=== PATIENT | female | born 1990 | race Caucasian/White ===

== ENCOUNTER 2018-10-21 05:38 | Emergency (ER) | payer MEDICAID, OTHER | END 2018-10-21 07:35 | disposition home or self-care (01) | LOC: ER 05:38 ==

== ENCOUNTER 2018-11-08 07:45 | Emergency (ER) | payer MEDICAID ==
[~2018-11-08] VITALS: Ht 165.1 cm; Wt 49.0 kg
[2018-11-08 08:40] LABS: BILIRUBIN,URINE NEGATIVE (NEGATIVE); CLARITY,URINE SLIGHTLY CLOUDY; COLOR,URINE YELLOW; GLUCOSE, URINE (UA) NEGATIVE (NEGATIVE); KETONES,URINE NEGATIVE (NEGATIVE); LEUKOCYTE ESTERASE ,URINE 3+ (NEGATIVE); NITRITE,URINE NEGATIVE (NEGATIVE); PH,URINE 6.5 (5-9); PROTEIN,URINE NEGATIVE (NEGATIVE); UROBILINOGEN,URINE NORMAL (NORMAL)
[2018-11-08 08:42] LABS: BASOPHILS % (AUTO) 0 % (0-10); EOSINOPHILS # (AUTO) 0.4 10^3/uL (0.0-0.3); EOSINOPHILS % (AUTO) 2 % (0-10); HEMATOCRIT 42 % (35-52); HEMOGLOBIN 14.4 G/DL (11.5-16.0); LYMPHOCYTES # (AUTO) 1.3 X 10^3 (1.0-4.0); LYMPHOCYTES % (AUTO) 8 % (12-44); MEAN CORPUSCULAR HEMOGLOBIN 33 PG (25-34); MEAN CORPUSCULAR HGB CONC 35 G/DL (32-36); MEAN CORPUSCULAR VOLUME 95 FL (80-99); MONOCYTES # (AUTO) 0.9 X 10^3 (0.0-1.0); MONOCYTES % (AUTO) 6 % (0-12); NEUTROPHILS # (AUTO) 13.2 X 10^3 (1.8-7.8); NEUTROPHILS % (AUTO) 83 % (42-75); PLATELET COUNT 181 10^3/uL (130-400); WHITE BLOOD COUNT 15.8 10^3/uL (4.3-11.0)
[2018-11-08 08:51] LABS: BACTERIA,URINE MODERATE /HPF; SQUAMOUS EPITHELIAL CELL,UR 25-50 /HPF; WBC,URINE 25-50 /HPF
[2018-11-08 08:57] LABS: ALANINE AMINOTRANSFERASE 15 U/L (0-55); ALKALINE PHOSPHATASE 52 U/L (40-136); BILIRUBIN,TOTAL 0.6 MG/DL (0.1-1.0); BUN/CREATININE RATIO 9; CALCIUM 9.4 MG/DL (8.5-10.1); CARBON DIOXIDE 20 MMOL/L (21-32); CHLORIDE 106 MMOL/L (98-107); CREATININE SERUM 0.64 MG/DL (0.60-1.30); GFR ESTIMATED > 60; GLUCOSE 82 MG/DL (70-105); POTASSIUM 4.1 MMOL/L (3.6-5.0); SODIUM 138 MMOL/L (135-145); TOTAL PROTEIN 7.2 GM/DL (6.4-8.2)
[2018-11-08 09:02] LABS: BAND NEUTROPHILS 2 %; NEUTROPHILS % (MANUAL) 85 %
[2018-11-08 09:03] LABS: BASOPHILS % (MANUAL) 0 %; EOSINOPHILS % (MANUAL) 1 %; LYMPHOCYTES % (MANUAL) 8 %; MONOCYTES % (MANUAL) 4 %; RBC MORPH NORMAL
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
[2018-11-08] MEDS ORDERED: NS IV 1000 ML 1,000 ML IV SCH (10:30)
[2018-11-08] MEDS ORDERED: ONDANSETRON 4 MG/2 ML (SDV) Z0FRAN IVP ONE (10:30)
[2018-11-08] MEDS ORDERED: cefTRIAXone FOR IV USE 1,000 MG in WATER (STERILE) FOR INJECTION 10 ML IV ONE (12:00)
[2018-11-08] MEDS ORDERED: CEFD300C3 PO (12:08)
[2018-11-08] MEDS ORDERED: ONDA8TAB13 PO (12:08)
[2018-11-08 12:32] VITALS: BP 105/65
== END 2018-11-08 12:32 | disposition home or self-care (01) ==
LOC: EDUNIT# 07:45 → ER 07:46
DX: O23.42 Unspecified infection of urinary tract in pregnancy, second trimester (principal); O99.342 Other mental disorders complicating pregnancy, second trimester; F41.9 Anxiety disorder, unspecified; F32.9 Major depressive disorder, single episode, unspecified; O99.612 Diseases of the digestive system complicating pregnancy, second trimester; K21.9 Gastro-esophageal reflux disease without esophagitis; Z3A.14 14 weeks gestation of pregnancy
CPT/HCPCS: 36415; 80053; 81000; 85007; 85027; 87088

== ENCOUNTER 2019-01-12 12:32 | Outpatient (CLI) | payer MEDICAID ==
[~2019-01-12] VITALS: Ht 157.5 cm; Wt 55.3 kg
[~2019-01-12 12:32] MED LIST: CEFD300C3 PO; ONDA8TAB13 PO
--- NOTE | 2019-01-12 12:39 | NUR ---
HERNAN GALLEGO presented to unit via AMB from ED, with c/o FREQUENT URINATION,PELVIC PRESSURE. HERNAN GALLEGO weighed, gowned, voided, and to bed. EFHM and TOCO applied, VS taken. HERNAN GALLEGO oriented to bed controls, call light, TV, heat, and A/C controls.
[2019-01-12 12:50] VITALS: BP 97/63
[2019-01-12 13:08] LABS: BILIRUBIN,URINE NEGATIVE (NEGATIVE); CLARITY,URINE VERY CLOUDY; COLOR,URINE YELLOW; GLUCOSE, URINE (UA) NEGATIVE (NEGATIVE); KETONES,URINE NEGATIVE (NEGATIVE); LEUKOCYTE ESTERASE ,URINE 3+ (NEGATIVE); NITRITE,URINE NEGATIVE (NEGATIVE); PH,URINE 8 (5-9); PROTEIN,URINE 1+ (NEGATIVE); UROBILINOGEN,URINE NORMAL (NORMAL)
[2019-01-12 13:23] LABS: AMORPHOUS SEDIMENT,UR LARGE AMOR URATES /LPF; BACTERIA,URINE TRACE /HPF; SQUAMOUS EPITHELIAL CELL,UR 25-50 /HPF
--- NOTE | 2019-01-12 13:35 | NUR ---
ACTIVE FETUS. NO CTXS. OCC MILD VARIABLE NOTED. FHR 135. VARIABILITY APPROPRIATE FOR GESTATIONAL AGE OF 23 WKS 3 DAYS.
--- NOTE | 2019-01-12 13:40 | NUR ---
DR. REYES NOTIFIED OF PT'S ARRIVAL , COMPLAINT, VS, MONITOR STRIP AND UA RESULTS. ORDERS RECEIVED. PLAN OF CARE REVIEWED WITH PT WITH STATED UNDERSTANDING.
--- NOTE | 2019-01-12 13:44 | NUR ---
EFM OFF PER DR. ERIC DURAND.
[2019-01-12] MEDS ORDERED: LACTATED RINGERS 1,000 ML IV SCH (13:45)
--- NOTE | 2019-01-12 14:05 | NUR ---
IV STARTED. SEE INTERVENTION.
--- NOTE | 2019-01-12 14:20 | NUR ---
EATING CRACKERS. OFFERS NO COMPLAINTS AT THIS TIME. STATES IS FEELING BETTER.
[2019-01-12] MEDS ORDERED: PEDI18TA2 PO ×2 (14:25→15:03)
[2019-01-12] MEDS ORDERED: BUSP15TA60 PO (14:29)
[2019-01-12] MEDS ORDERED: RANI150T46 PO (14:29)
[2019-01-12] MEDS ORDERED: HYDR-3584 PO (14:29)
--- NOTE | 2019-01-12 14:55 | NUR ---
CALLED DR. REYES WITH UPDATE ON PT. ORDER TO DISMISS WITH PRECAUTIONS AND TO F/U SCHEDULED AND NEEDED.
--- NOTE | 2019-01-12 14:58 | NUR ---
IV COMPLETED. IV D/C'ED WITH CATHETER TIP INTACT. SITE CLEAR. UP TO GET DRESSED.
[2019-01-12 15:15] VITALS: BP 97/63
--- NOTE | 2019-01-12 15:15 | NUR ---
DISCHARGE INSTRUCTIONS REVIEWED WITH COPY TO PT. STATES UNDERSTANDING OF ALL INSTRUCTIONS AND NEED TO F/U SCHEDULED AND NEEDED. DISMISSED AMB FROM WS IN STABLE CONDITION TO AWAITING CAR.
== END 2019-01-12 15:15 | disposition home or self-care (01) ==
LOC: LDRP 12:32 → WSo 12:32
PROVIDERS: ATTEND Family Medicine
DX: O99.89 Other specified diseases and conditions complicating pregnancy, childbirth and the puerperium (principal); R35.0 Frequency of micturition; Z3A.23 23 weeks gestation of pregnancy
CPT/HCPCS: 81000; 87088; 96360; 99213

== ENCOUNTER 2019-02-08 22:56 | Outpatient (CLI) | payer MEDICAID ==
[~2019-02-08] VITALS: Ht 157.5 cm; Wt 58.1 kg
[~2019-02-08 22:56] MED LIST changes: +BUSP15TA60 PO; +HYDR-3584 PO; +PEDI18TA2 PO; +RANI150T46 PO
--- NOTE | 2019-02-08 23:00 | NUR ---
HERNAN GALLEGO presented to unit via ambulatory from ED, accompanied by s.o, with c/o VAG LEAKAGE. HERNAN GALLEGO weighed, gowned, voided, and to bed. EFHM and TOCO applied, VS taken. HERNAN GALLEGO oriented to bed controls, call light, TV, heat, and A/C controls. pt up changing and supplying u.a, assessments to follow.
[2019-02-08 23:13] VITALS: BP 103/63
[2019-02-08 23:14] LABS: BILIRUBIN,URINE NEGATIVE (NEGATIVE); CLARITY,URINE CLEAR; COLOR,URINE YELLOW; GLUCOSE, URINE (UA) NEGATIVE (NEGATIVE); KETONES,URINE NEGATIVE (NEGATIVE); LEUKOCYTE ESTERASE ,URINE 1+ (NEGATIVE); NITRITE,URINE NEGATIVE (NEGATIVE); PH,URINE 7 (5-9); PROTEIN,URINE NEGATIVE (NEGATIVE); UROBILINOGEN,URINE NORMAL (NORMAL)
[2019-02-08 23:22] LABS: BACTERIA,URINE FEW /HPF
--- NOTE | 2019-02-08 23:41 | NUR ---
This RN called Dr Slaughter to notify of patient arrival and complaints of possible leaking of fluid, notified Dr of nitrazine test with negative result, absent contraction pattern, FHR variability, and UA results. New order received at this time for call in prescription of Macrobid 100mg BID x7 days and discharge home.
--- NOTE | 2019-02-08 23:45 | NUR ---
FHR baseline of 130, moderate variability, accelerations present, no decelerations, absent contraction pattern, abd non tender, + FM, membranes intact with no vaginal bleeding.
--- NOTE | 2019-02-08 23:53 | NUR ---
Discharge instructions reviewed and handouts given to patient. Patient verbalize understanding. Patient and s/o ambulating off of unit to private vehicle.
--- NOTE | 2019-02-12 19:17 | Physician Query-Final Dx ---
MIKKI TOUSSAINT 02/12/19 1917: Final Diagnosis Give Final Diagnosis Please give Final Diagnosis Please give diagnosis and weeks of gestation MICAH RIOJAS MD 02/12/192149: Final Diagnosis Give Final Diagnosis Second Trimester 27 weeks gestation UTI MIKKI TOUSSAINT February 12, 2019 19:17 MICAH RIOJAS MD February 12, 2019 21:50
== END 2019-02-08 23:53 ==
LOC: WSo 22:56 → LDRP 22:57 → WSo 23:53
PROVIDERS: ATTEND Family Medicine
DX: O23.42 Unspecified infection of urinary tract in pregnancy, second trimester (principal); Z3A.27 27 weeks gestation of pregnancy
CPT/HCPCS: 81000; 99213

== ENCOUNTER 2019-03-21 19:28 | Observation (INO) | payer MEDICAID ==
[~2019-03-21] VITALS: Ht 157.5 cm; Wt 58.7 kg
--- NOTE | 2019-03-21 19:40 | NUR ---
EHRNAN GALLEGO presented to unit via ambulation from ED, accompanied by SO, with c/o BLEEDING. HERNAN GALLEGO weighed, gowned, voided, and to bed. EFHM and TOCO applied, VS taken. HERNAN GALLEGO oriented to bed controls, call light, TV, heat, and A/C controls.
[2019-03-21 19:50] VITALS: BP 101/61
--- NOTE | 2019-03-21 20:04 | NUR ---
SVE by Donovan Navarrete RN, 1.5 cm 50% soft and no bleeding noted. pt denies cramping or UC at this time.
[2019-03-21 20:15] LABS: BILIRUBIN,URINE NEGATIVE (NEGATIVE); CLARITY,URINE CLEAR; COLOR,URINE YELLOW; GLUCOSE, URINE (UA) NEGATIVE (NEGATIVE); KETONES,URINE NEGATIVE (NEGATIVE); LEUKOCYTE ESTERASE ,URINE 2+ (NEGATIVE); NITRITE,URINE NEGATIVE (NEGATIVE); PH,URINE 7 (5-9); PROTEIN,URINE NEGATIVE (NEGATIVE); UROBILINOGEN,URINE NORMAL (NORMAL)
[2019-03-21 20:21] LABS: BACTERIA,URINE FEW /HPF; RBC,URINE RARE /HPF
--- NOTE | 2019-03-21 21:13 | NUR ---
SVE by this RN 1.5 cm 50% no change from previous check. Pt continues to deny pain at this time. Pt states she only has hemorrhoid pain. Pt drank to large glasses of H2O and has voided.
[2019-03-21] MEDS ORDERED: LACTATED RINGERS 1,000 ML IV ONE (21:24)
[2019-03-21] MEDS ORDERED: BETAMETHASONE ACE/NA PHOS 6 MG/ML (CELESTONE SOLUSPAN) ONE (21:24)
[2019-03-21] MEDS: BETAMETHASONE ACE/NA PHOS 6 MG/ML (CELESTONE SOLUSPAN) IM SCH (21:43)
[2019-03-21] MEDS: LACTATED RINGERS 1,000 ML IV SCH (21:48)
[2019-03-21 22:30] VITALS: BP 99/63
[2019-03-21] MEDS ORDERED: D5 LR IV SOLUTION 1,000 ML IV ONE (22:56)
[2019-03-21] MEDS ORDERED: NIFEdipine 10 MG CAPS (WOMEN'S SERVICES ONLY!!!) PO ONE ×2 (22:56→23:00)
[2019-03-21] MEDS: D5 LR IV SOLUTION 1,000 ML IV SCH (23:04)
[2019-03-21 23:08] VITALS: BP 106/67
[2019-03-22] VITALS (25 sets, daily range): BP systolic 90–114; BP diastolic 51–72
[2019-03-22] MEDS: LACTATED RINGERS 1,000 ML IV SCH (00:10)
[2019-03-22] MEDS: NIFEdipine 10 MG CAPS (WOMEN'S SERVICES ONLY!!!) PO SCH ×5 (02:52→18:38)
[2019-03-22] MEDS: D5 LR IV SOLUTION 1,000 ML IV SCH ×2 (06:43→15:05)
--- NOTE | 2019-03-22 06:50 | NUR ---
Pt given po medication and educated on how to order breakfast. Pt sitting up with phone to order. Pt denies pain at this time.
[2019-03-22] MEDS ORDERED: PENI500T PO (10:48)
[2019-03-22] MEDS ORDERED: ACET-2267 PO (10:52)
--- NOTE | 2019-03-22 11:35 | History & Physical-OB ---
OB - Chief Complaint & HPI Date/Time Date of Admission: Date of Admission: 03/21/19 Date seen by a Provider: Mar 22, 2019 Time Seen by a Provider: 11:27 Chief Complaint/History OB-Reason for Admission/Chief: Obstetrical Complication (bleeding/ contractions) Hx : 4 Hx Para: 3 Expected Date of Delivery: May 08, 2019 Gestational Age in Weeks: 33 Gestational Age in Days: 1 Other reason for admission: This is a 28 yo at 33w1d who report blood on the toilet paper after wiping. Denies any ongoing vaginal bleeding, denies feeling contractions but reports increased pelvic pressure for the past day or so. Denies LOF, admits to movement. Pt report delivery with previous pregnancies (earliest delivered at 35wk). Pt also reports tooth pain - has been seen by Dr. Umana who prescribed Penicillin which she has been taking. Schedule to see [facility] 04/16/19. Continues to have tooth pain, suppose to have a root canal but pt would like to have tooth pulled. Allergies and Home Medications Allergies Coded Allergies: No Known Drug Allergies (Unverified , 10/21/18) Home Medications Acetaminophen 500 Mg Tablet, 1,000 MG PO Q6H, (Reported) Buspirone HCl 15 Mg Tablet, 15 MG PO TID, (Reported) Hydroxyzine HCl 10 Mg Tablet, 10 MG PO HS, (Reported) Pedi Mv No.79/Ferrous Fumarate 18 Mg Tab.chew, 36 MG PO DAILY, (Reported) Penicillin V Potassium 500 Mg Tablet, 500 MG PO Q4H, (Reported) Ranitidine HCl 150 Mg Tablet, 150 MG PO BID, (Reported) Patient Home Medication List Home Medication List Reviewed: Yes OB - History Hx of Present Care: Yes Ultrasounds: Normal mid trimester US Obstetrical History Hx : 4 Hx Para: 3 Patient Past Medical History see record Social History/Family History Recent Infectious Disease Expo: No 2nd Hand Smoke Exposure: No OB - Admission Exam Physical Exam Vitals: Vital Signs 03/22/19 03/22/19 04:25 07:00 Temp 98.0 Pulse 104 Resp 18 B/P (MAP) 93/55 (68) O2 Delivery Room Air Abdomen: Non tender Cervical Dilatation: 2cm Membranes: Intact Heart Rate: 130's Accelerations: Accelerations Present Decelerations: No Decelerations Short Term Variability: Present Poolroom/Poolhall Manager Variability: Average (6-25) Contractions on Admission: None (irritablity noted at this time.) Labs Laboratory Tests Test 03/21/19 19:50 Range/Units Urine Color YELLOW Urine Clarity CLEAR Urine pH 7 5-9 Urine Specific [place] 1.010 L 1.016-1.022 Urine Protein NEGATIVE NEGATIVE Urine Glucose (UA) NEGATIVE NEGATIVE Urine Ketones NEGATIVE NEGATIVE Urine Nitrite NEGATIVE NEGATIVE Urine Bilirubin NEGATIVE NEGATIVE Urine Urobilinogen NORMAL NORMAL MG/DL Urine Leukocyte Esterase 2+ H NEGATIVE Urine RBC (Auto) 2+ H NEGATIVE Urine RBC RARE /HPF Urine WBC 2-5 /HPF Urine Squamous Epithelial Cells 10-25 H /HPF Urine Crystals NONE /LPF Urine Bacteria FEW H /HPF Urine Casts NONE /LPF Urine Mucus NEGATIVE /LPF Urine Culture Indicated CULTURE PENDING OB - Assessment/Plan/Diagnosis Assessment Admission Dx at 33w1d w/ contractions, not in active labor Tooth pain Hx of delivery Admission Status: Observation Plan Other Plan at 33w1d w/ contractions, not in active labor Tooth pain Hx of delivery - Pt nolvia q2-3 min after cervical check; SVE 2cm dilated w/o cervical change. Treated w/ IVF w/o cessation of contraction. -Pt given first dose of betamethasone 03/21/19, second dose due tonight. - Started Procardia w/ improvement in contractions - will DC w/ rx until f/u with Dr. Slaughter. - Recommend pelvic rest and reduce activity at home. - Appointment with Dr. Mcleod at [facility] at 1pm for tooth pain. Discussed case with Dr. Mcleod and I cleared patient to have dental work done including extraction. Rx given for Clindamycin. Copy Copies To 1: MICAH SLAUGHTER MD, LINDA K DO Mar 22, 2019 11:35
[2019-03-22] MEDS ORDERED: NIFE10CA44 PO (11:44)
[2019-03-22] MEDS ORDERED: CLIN150C17 PO (11:44)
--- NOTE | 2019-03-22 11:49 | Discharge Instructions ---
Discharge Inst-[facility] Depart Medications New, Converted or Re-Newed RX: Transmitted to Pharmacy ([facility]) New Medications: Clindamycin HCl (Clindamycin HCl) 150 Mg Capsule 150 MG PO Q6H for 7 Days, #28 CAP 0 Refills Nifedipine (Nifedipine) 10 Mg Capsule 10 MG PO TID for 21 Days, #63 CAP 0 Refills Continued Medications: Acetaminophen (Tylenol Extra Strength) 500 Mg Tablet 1000 MG PO Q6H for Pain, TAB Buspirone HCl (Buspirone HCl) 15 Mg Tablet 15 MG PO TID, TAB Hydroxyzine HCl (Hydroxyzine HCl) 10 Mg Tablet 10 MG PO HS, TAB Pedi Mv No.79/Ferrous Fumarate (Flintstones with Iron Tab Chew) 18 Mg Tab.chew 36 MG PO DAILY, TAB Ranitidine HCl (Zantac) 150 Mg Tablet 150 MG PO BID, TAB Discontinued Medications: Penicillin V Potassium (Penicillin V Potassium) 500 Mg Tablet 500 MG PO Q4H, TAB Follow Up/Instructions Goal/Follow Up: Follow up with Dr. Slaughter next week. Follow up with Dr. Mcleod at [facility] in [facility] 03/25/19 at 1pm Patient Instructions: Continue Nifedipine until f/u with Dr. Slaughter. Take Clindamycin antibiotic for tooth pain instead of Penicillin (stop taking Penicillin). Activity Activity: Activity as Tolerated (Pelvic rest, no strenuous activity or heavy lifting) Nothing Inside Vagina: No [place] Diet Discharge Diet: No Restrictions Return to The Hospital For: Vaginal bleeding, leaking fluid or contractions. Copies To 1: MICAH SLAUGHTER MD, LINDA K DO Mar 22, 2019 11:49
--- OUTSIDE RECORDS SUMMARY | 2019-03-22 12:06 | XMS REPORT | Continuity of Care Document ---
Author Organization Unknown Address Unknown Allergies Active Description Code Type Severity Reaction Onset Reported/Identified Relationship to Patient Clinical Status Yes No Known Drug Allergies [id number] Drug Allergy Unknown N/A 10/21/2018 Medications There is no data. Problems Date Dx Coded Attending Type Code Diagnosis Diagnosed By 10/21/2018 NEYMAR SALAS MD, Ot F32.9 MAJOR DEPRESSIVE DISORDER, SINGLE EPISOD 10/21/2018 NEYMAR SALAS MD Ot F41.0 PANIC DISORDER [EPISODIC PAROXYSMAL ANXI 10/21/2018 NEYMAR SALAS MD Ot O23.41 UNSP INFCT OF URINARY TRACT IN 10/21/2018 NEYMAR SALAS MD Ot O26.891 OTH RELATED CONDITIONS, FIRST 10/21/2018 NEYMAR SALAS MD Ot O99.341 OTH MENTAL DISORDERS COMPLICATING PREGNA 10/21/2018 NEYMAR SALAS MD Ot Z3A.12 12 WEEKS GESTATION OF 11/08/2018 SOLEDAD MARROQUIN MD, Ot F32.9 MAJOR DEPRESSIVE DISORDER, SINGLE EPISOD 11/08/2018 SOLEDAD MARROQUIN MD, Ot F41.9 ANXIETY DISORDER, UNSPECIFIED 11/08/2018 SOLEDAD MARROQUIN MD Ot K21.9 GASTRO-ESOPHAGEAL REFLUX DISEASE WITHOUT 11/08/2018 SOLEDAD MARROQUIN MD Ot O20.9 HEMORRHAGE IN EARLY , UNSPECIFI 11/08/2018 SOLEDAD MARROQUIN MD Ot O23.42 UNSP INFCT OF URINARY TRACT IN 11/08/2018 SOLEDAD MARROQUIN MD Ot O99.342 OTH MENTAL DISORDERS COMP , SEC 11/08/2018 SOLEDAD MARROQUIN MD Ot O99.612 DISEASES OF THE DGSTV SYS COMP 11/08/2018 SOLEDAD MARROQUIN MD Ot Z3A.14 14 WEEKS GESTATION OF 11/12/2018 SOLEDAD MARROQUIN MD, Ot F32.9 MAJOR DEPRESSIVE DISORDER, SINGLE EPISOD 11/12/2018 SOLEDAD MARROQUIN MD, Ot F41.9 ANXIETY DISORDER, UNSPECIFIED 11/12/2018 SOLEDAD MARROQUIN MD, Ot K21.9 GASTRO-ESOPHAGEAL REFLUX DISEASE WITHOUT 11/12/2018 SOLEDAD MARROQUIN MD, Ot O20.9 HEMORRHAGE IN EARLY , UNSPECIFI 11/12/2018 SOLEDAD MARROQUIN MD, Ot O23.42 UNSP INFCT OF URINARY TRACT IN 11/12/2018 SOLEDAD MARROQUIN MD, Ot O99.342 OTH MENTAL DISORDERS COMP , SEC 11/12/2018 SOLEDAD MARROQUIN MD, Ot O99.612 DISEASES OF THE DGSTV SYS COMP 11/12/2018 SOLEDAD MARROQUIN MD, Ot Z3A.14 14 WEEKS GESTATION OF 01/12/2019 QUINCY REYES DO Ot O99.89 OTH DISEASES AND CONDITIONS COMPL PREG/C 01/12/2019 QUINCY REYES DO Ot R35.0 FREQUENCY OF MICTURITION 01/12/2019 QUINCY REYES DO Ot Z3A.23 23 WEEKS GESTATION OF 02/14/2019 MICAH RIOJAS MD, Ot O23.42 UNSP INFCT OF URINARY TRACT IN 02/14/2019 MICAH RIOJAS MD, Ot Z3A.27 27 WEEKS GESTATION OF Procedures There is no data. Results Test Result Range Complete urinalysis with reflex to culture - 10/21/18 05:57 Urine color determination YELLOW NRG Urine clarity determination CLEAR NRG Urine pH measurement by test strip 6 5-9 Specific gravity of urine by test strip 1.025 1.016-1.022 Urine protein assay by test strip, semi-quantitative 1+ NEGATIVE Urine glucose detection by automated test strip NEGATIVE NEGATIVE Erythrocytes detection in urine sediment by light microscopy 1+ NEGATIVE Urine ketones detection by automated test strip 1+ NEGATIVE Urine nitrite detection by test strip NEGATIVE NEGATIVE Urine total bilirubin detection by test strip NEGATIVE NEGATIVE Urine urobilinogen measurement by automated test strip (mass/volume) NORMAL NORMAL Urine leukocyte esterase detection by dipstick 1+ NEGATIVE Automated urine sediment erythrocyte count by microscopy (number/high power field) [HPF] NRG Automated urine sediment leukocyte count by microscopy (number/high power field) [HPF] NRG Bacteria detection in urine sediment by light microscopy TRACE NRG Squamous epithelial cells detection in urine sediment by light microscopy 25-50 NRG Crystals detection in urine sediment by light microscopy NONE NRG Casts detection in urine sediment by light microscopy NONE NRG Mucus detection in urine sediment by light microscopy LARGE NRG Complete urinalysis with reflex to culture NO NRG Complete blood count (CBC) with automated white blood cell (WBC) differential - 10/21/18 06:26 Blood leukocytes automated count (number/volume) 16.7 10*3/uL 4.3-11.0 Blood erythrocytes automated count (number/volume) 3.93 10*6/uL 4.35-5.85 Venous blood hemoglobin measurement (mass/volume) 12.9 g/dL 11.5-16.0 Blood hematocrit (volume fraction) 37 % 35-52 Automated erythrocyte mean corpuscular volume 93 [foz_us] 80-99 Automated erythrocyte mean corpuscular hemoglobin (mass per erythrocyte) 33 pg 25-34 Automated erythrocyte mean corpuscular hemoglobin concentration measurement (mass/volume) 35 g/dL 32-36 Automated erythrocyte distribution width ratio 12.3 % 10.0- 14.5 Automated blood platelet count (count/volume) 188 10*3/uL 130-400 Automated blood platelet mean volume measurement 11.0 [foz_us] 7.4-10.4 Automated blood neutrophils/100 leukocytes 72 % 42-75 Automated blood lymphocytes/100 leukocytes 18 % 12-44 Blood monocytes/100 leukocytes 7 % 0-12 Automated blood eosinophils/100 leukocytes 2 % 0-10 Automated blood basophils/100 leukocytes 0 % 0-10 Blood neutrophils automated count (number/volume) 12.1 10*3 1.8-7.8 Blood lymphocytes automated count (number/volume) 3.1 10*3 1.0-4.0 Blood monocytes automated count (number/volume) 1.2 10*3 0.0- 1.0 Automated eosinophil count 0.4 10*3/uL 0.0-0.3 Automated blood basophil count (count/volume) 0.0 10*3/uL 0.0-0.1 ABO+Rh group - 10/21/18 06:26 ABO+Rh group ON NRG Transfusion band number [id number] NR Comprehensive metabolic panel - 10/21/18 06:26 Serum or plasma sodium measurement (moles/volume) 136 mmol/L 135-145 Serum or plasma potassium measurement (moles/volume) 3.6 mmol/L 3.6-5.0 Serum or plasma chloride measurement (moles/volume) 105 mmol/L 98-107 Carbon dioxide 22 mmol/L 21-32 Serum or plasma anion gap determination (moles/volume) 9 mmol/L 5-14 Serum or plasma urea nitrogen measurement (mass/volume) 9 mg/dL 7-18 Serum or plasma creatinine measurement (mass/volume) 0.64 mg/dL 0.60-1.30 Serum or plasma urea nitrogen/creatinine mass ratio 14 NRG Serum or plasma creatinine measurement with calculation of estimated glomerular filtration rate > NRG Serum or plasma glucose measurement (mass/volume) 78 mg/dL 70-105 Serum or plasma calcium measurement (mass/volume) 9.1 mg/dL 8.5-10.1 Serum or plasma total bilirubin measurement (mass/volume) 0.3 mg/dL 0.1-1.0 Serum or plasma alkaline phosphatase measurement (enzymatic activity/volume) 47 U/L 40-136 Serum or plasma aspartate aminotransferase measurement (enzymatic activity/volume) 16 U/L 5-34 Serum or plasma alanine aminotransferase measurement (enzymatic activity/volume) 15 U/L 0-55 Serum or plasma protein measurement (mass/volume) 6.9 g/dL 6.4-8.2 Serum or plasma albumin measurement (mass/volume) 3.8 g/dL 3.2-4.5 CALCIUM CORRECTED 9.3 mg/dL 8.5-10.1 Serum or plasma choriogonadotropin measurement (units/volume) - 10/21/18 06:26 Serum or plasma choriogonadotropin measurement (units/volume) 280180 m[iU]/mL <5 Complete blood count (CBC) with automated white blood cell (WBC) differential - 11/08/18 08:35 Blood leukocytes automated count (number/volume) 15.8 10*3/uL 4.3-11.0 Blood erythrocytes automated count (number/volume) 4.39 10*6/uL 4.35-5.85 Venous blood hemoglobin measurement (mass/volume) 14.4 g/dL 11.5-16.0 Blood hematocrit (volume fraction) 42 % 35-52 Automated erythrocyte mean corpuscular volume 95 [foz_us] 80-99 Automated erythrocyte mean corpuscular hemoglobin (mass per erythrocyte) 33 pg 25-34 Automated erythrocyte mean corpuscular hemoglobin concentration measurement (mass/volume) 35 g/dL 32-36 Automated erythrocyte distribution width ratio 13.0 % 10.0- 14.5 Automated blood platelet count (count/volume) 181 10*3/uL 130-400 Automated blood platelet mean volume measurement 11.0 [foz_us] 7.4-10.4 Automated blood neutrophils/100 leukocytes 83 % 42-75 Automated blood lymphocytes/100 leukocytes 8 % 12-44 Blood monocytes/100 leukocytes 6 % 0-12 Automated blood eosinophils/100 leukocytes 2 % 0-10 Automated blood basophils/100 leukocytes 0 % 0-10 Blood neutrophils automated count (number/volume) 13.2 10*3 1.8-7.8 Blood lymphocytes automated count (number/volume) 1.3 10*3 1.0-4.0 Blood monocytes automated count (number/volume) 0.9 10*3 0.0- 1.0 Automated eosinophil count 0.4 10*3/uL 0.0-0.3 Automated blood basophil count (count/volume) 0.0 10*3/uL 0.0-0.1 Complete urinalysis with reflex to culture - 11/08/18 08:35 Urine color determination YELLOW NRG Urine clarity determination SLIGHTLY CLOUDY NRG Urine pH measurement by test strip 6.5 5-9 Specific gravity of urine by test strip 1.010 1.016-1.022 Urine protein assay by test strip, semi-quantitative NEGATIVE NEGATIVE Urine glucose detection by automated test strip NEGATIVE NEGATIVE Erythrocytes detection in urine sediment by light microscopy NEGATIVE NEGATIVE Urine ketones detection by automated test strip NEGATIVE NEGATIVE Urine nitrite detection by test strip NEGATIVE NEGATIVE Urine total bilirubin detection by test strip NEGATIVE NEGATIVE Urine urobilinogen measurement by automated test strip (mass/volume) NORMAL NORMAL Urine leukocyte esterase detection by dipstick 3+ NEGATIVE Automated urine sediment erythrocyte count by microscopy (number/high power field) NONE NRG Automated urine sediment leukocyte count by microscopy (number/high power field) [HPF] NRG Bacteria detection in urine sediment by light microscopy MODERATE NRG Squamous epithelial cells detection in urine sediment by light microscopy 25-50 NRG Crystals detection in urine sediment by light microscopy NONE NRG Casts detection in urine sediment by light microscopy NONE NRG Mucus detection in urine sediment by light microscopy NEGATIVE NRG Complete urinalysis with reflex to culture YES NRG Comprehensive metabolic panel - 11/08/18 08:35 Serum or plasma sodium measurement (moles/volume) 138 mmol/L 135-145 Serum or plasma potassium measurement (moles/volume) 4.1 mmol/L 3.6-5.0 Serum or plasma chloride measurement (moles/volume) 106 mmol/L 98-107 Carbon dioxide 20 mmol/L 21-32 Serum or plasma anion gap determination (moles/volume) 12 mmol/L 5-14 Serum or plasma urea nitrogen measurement (mass/volume) 6 mg/dL 7-18 Serum or plasma creatinine measurement (mass/volume) 0.64 mg/dL 0.60-1.30 Serum or plasma urea nitrogen/creatinine mass ratio 9 NRG Serum or plasma creatinine measurement with calculation of estimated glomerular filtration rate > NRG Serum or plasma glucose measurement (mass/volume) 82 mg/dL 70-105 Serum or plasma calcium measurement (mass/volume) 9.4 mg/dL 8.5-10.1 Serum or plasma total bilirubin measurement (mass/volume) 0.6 mg/dL 0.1-1.0 Serum or plasma alkaline phosphatase measurement (enzymatic activity/volume) 52 U/L 40-136 Serum or plasma aspartate aminotransferase measurement (enzymatic activity/volume) 19 U/L 5-34 Serum or plasma alanine aminotransferase measurement (enzymatic activity/volume) 15 U/L 0-55 Serum or plasma protein measurement (mass/volume) 7.2 g/dL 6.4-8.2 Serum or plasma albumin measurement (mass/volume) 4.0 g/dL 3.2-4.5 CALCIUM CORRECTED 9.4 mg/dL 8.5-10.1 Blood manual differential performed detection - 11/08/18 08:35 Blood monocytes/100 leukocytes 4 % NRG Manual blood segmented neutrophils/100 leukocytes 85 % NRG Blood band neutrophils/100 leukocytes 2 % NRG Manual blood lymphocytes/100 leukocytes 8 % NRG Manual eosinophils/100 leukocytes in nose 1 % NRG Manual blood basophils/100 leukocytes 0 % NRG Blood erythrocyte morphology finding identification NORMAL NRG Bacterial urine culture - 11/08/18 08:35 Bacterial urine culture 3 OR MORE NRG COLONY COUNT >100,000/ML NRG FTX;REPORTABLE (GRAM POSITIVE), SUGGESTING PROBABLE NRG FREE TEXT ENTRY 2 COLLECTION CONTAMINATION WITH NRG FREE TEXT ENTRY 3 SKIN SUKUMAR NRG CULTURE, URINE - 11/20/18 15:52 CULTURE, URINE, ROUTINE SEE NOTE NRG CULTURE, URINE - 12/26/18 16:12 CULTURE, URINE, ROUTINE SEE NOTE NRG Complete urinalysis with reflex to culture - 01/12/19 12:45 Urine color determination YELLOW NRG Urine clarity determination VERY CLOUDY NRG Urine pH measurement by test strip 8 5-9 Specific gravity of urine by test strip 1.015 1.016-1.022 Urine protein assay by test strip, semi-quantitative 1+ NEGATIVE Urine glucose detection by automated test strip NEGATIVE NEGATIVE Erythrocytes detection in urine sediment by light microscopy 1+ NEGATIVE Urine ketones detection by automated test strip NEGATIVE NEGATIVE Urine nitrite detection by test strip NEGATIVE NEGATIVE Urine total bilirubin detection by test strip NEGATIVE NEGATIVE Urine urobilinogen measurement by automated test strip (mass/volume) NORMAL NORMAL Urine leukocyte esterase detection by dipstick 3+ NEGATIVE Automated urine sediment erythrocyte count by microscopy (number/high power field) [HPF] NRG Automated urine sediment leukocyte count by microscopy (number/high power field) NONE NRG Bacteria detection in urine sediment by light microscopy TRACE NRG Squamous epithelial cells detection in urine sediment by light microscopy 25-50 NRG Crystals detection in urine sediment by light microscopy PRESENT NRG Casts detection in urine sediment by light microscopy NONE NRG Mucus detection in urine sediment by light microscopy NEGATIVE NRG Complete urinalysis with reflex to culture NO NRG Amorphous sediment detection in urine sediment by light microscopy LARGE LB URATES NRG Bacterial urine culture - 01/12/19 12:45 Bacterial urine culture 3 OR MORE NRG COLONY COUNT >100,000/ML NRG FTX;REPORTABLE (GRAM POSITIVE) SUGGESTING PROBABLE NRG FREE TEXT ENTRY 2 COLLLECTION CONTAMINATION WITH SKIN NRG FREE TEXT ENTRY 3 SUKUMAR. NO SUSCEPTIBILITY PERFORMED NRG GLUCOSE HEATHER 1 HOUR - 01/28/19 15:06 GLUCOSE, POSTPRANDIAL/ 1 HOUR 75 mg/dL See Note: Complete urinalysis with reflex to culture - 02/08/19 23:05 Urine color determination YELLOW NRG Urine clarity determination CLEAR NRG Urine pH measurement by test strip 7 5-9 Specific gravity of urine by test strip 1.010 1.016-1.022 Urine protein assay by test strip, semi-quantitative NEGATIVE NEGATIVE Urine glucose detection by automated test strip NEGATIVE NEGATIVE Erythrocytes detection in urine sediment by light microscopy NEGATIVE NEGATIVE Urine ketones detection by automated test strip NEGATIVE NEGATIVE Urine nitrite detection by test strip NEGATIVE NEGATIVE Urine total bilirubin detection by test strip NEGATIVE NEGATIVE Urine urobilinogen measurement by automated test strip (mass/volume) NORMAL NORMAL Urine leukocyte esterase detection by dipstick 1+ NEGATIVE Automated urine sediment erythrocyte count by microscopy (number/high power field) NONE NRG Automated urine sediment leukocyte count by microscopy (number/high power field) [HPF] NRG Bacteria detection in urine sediment by light microscopy FEW NRG Squamous epithelial cells detection in urine sediment by light microscopy 10-25 NRG Crystals detection in urine sediment by light microscopy NONE NRG Casts detection in urine sediment by light microscopy NONE NRG Mucus detection in urine sediment by light microscopy NEGATIVE NRG Complete urinalysis with reflex to culture NO NRG Complete urinalysis with reflex to culture - 03/21/19 19:50 Urine color determination YELLOW NRG Urine clarity determination CLEAR NRG Urine pH measurement by test strip 7 5-9 Specific gravity of urine by test strip 1.010 1.016-1.022 Urine protein assay by test strip, semi-quantitative NEGATIVE NEGATIVE Urine glucose detection by automated test strip NEGATIVE NEGATIVE Erythrocytes detection in urine sediment by light microscopy 2+ NEGATIVE Urine ketones detection by automated test strip NEGATIVE NEGATIVE Urine nitrite detection by test strip NEGATIVE NEGATIVE Urine total bilirubin detection by test strip NEGATIVE NEGATIVE Urine urobilinogen measurement by automated test strip (mass/volume) NORMAL NORMAL Urine leukocyte esterase detection by dipstick 2+ NEGATIVE Automated urine sediment erythrocyte count by microscopy (number/high power field) RARE NRG Automated urine sediment leukocyte count by microscopy (number/high power field) [HPF] NRG Bacteria detection in urine sediment by light microscopy FEW NRG Squamous epithelial cells detection in urine sediment by light microscopy 10-25 NRG Crystals detection in urine sediment by light microscopy NONE NRG Casts detection in urine sediment by light microscopy NONE NRG Mucus detection in urine sediment by light microscopy NEGATIVE NRG Complete urinalysis with reflex to culture CULTURE PENDING NRG Encounters ACCT No. Visit Date/Time Discharge Status Pt. Type Provider Facility Loc./Unit Complaint [id number] 03/20/2019 14:20:00 ACT Outpatient [facility] [id number] 01/28/2019 14:00:00 Document Registration [id number] 12/26/2018 11:20:00 Document Registration [id number] 11/20/2018 15:00:00 Document Registration [id number] 02/08/2019 22:56:00 02/08/2019 23:53:00 DIS Out[facility] [id number] 01/12/2019 12:32:00 01/12/2019 15:15:00 DIS Outpatient QUINCY REYES DO Via [facility] FREQUENT URINATION,PELVIC PRESSURE [id number] 11/08/2018 07:46:00 11/08/2018 12:32:00 DIS Emergency CARA STOKES, SOLEDAD Levy [facility] ER VOMITING [id number] 10/21/2018 05:38:00 10/21/2018 07:35:00 DIS Emergency JOSUE TSOKES, NEYMAR Melgzoa [facility] ER ABD PAIN;11 WKS [id number] 03/22/2019 11:26:00 ACT Inpatient QUINCY REYES DO Via [facility] LDRP CONTRACTIONS
[2019-03-22] MEDS ORDERED: ONDANSETRON 4 MG/2 ML (SDV) Z0FRAN ONE (20:34)
[2019-03-22] MEDS ORDERED: ONDANSETRON 4 MG/2 ML (SDV) Z0FRAN IVP ONE (20:45)
[2019-03-22] MEDS: BETAMETHASONE ACE/NA PHOS 6 MG/ML (CELESTONE SOLUSPAN) IM SCH (21:01)
--- NOTE | 2019-03-22 21:10 | NUR ---
Discharge instructions reviewed, appointment cards given, patient especially showed area of discharge instructions on new medications to take. Patient verbalized understanding of all discharge education. Discharge handouts given to patient to take home.
--- NOTE | 2019-03-22 21:15 | NUR ---
Patient ambulating off of unit to private vehicle at this time.
== END 2019-03-22 21:10 | disposition home or self-care (01) ==
LOC: WSo 19:28 → LDRP 19:30 → WSo 03-22 11:26
PROVIDERS: ADMIT Family Medicine; ATTEND Family Medicine
DX: O47.03 False labor before 37 completed weeks of gestation, third trimester (principal); O99.613 Diseases of the digestive system complicating pregnancy, third trimester; K08.89 Other specified disorders of teeth and supporting structures; O09.213 Supervision of pregnancy with history of pre-term labor, third trimester; Z3A.33 33 weeks gestation of pregnancy
CPT/HCPCS: 81000; 87088; 96361; 96372; 96374

== ENCOUNTER 2019-04-10 19:24 | Observation (INO) | payer MEDICAID ==
[~2019-04-10] VITALS: Ht 157.5 cm; Wt 59.8 kg
[~2019-04-10 19:24] MED LIST changes: +ACET-2267 PO; +CLIN150C17 PO; +NIFE10CA44 PO; +PENI500T PO
--- NOTE | 2019-04-10 19:30 | NUR ---
HERNAN GALLEGO presented to unit via from ED, accompanied by S/O, with c/o CONTRACTIONS. HERNAN GALLEGO weighed, gowned, voided, and to bed. EFHM and TOCO applied, VS taken. HERNAN GALLEGO oriented to bed controls, call light, TV, heat, and A/C controls.
[2019-04-10 19:40] VITALS: BP 114/74
[2019-04-10 20:12] LABS: BILIRUBIN,URINE NEGATIVE (NEGATIVE); CLARITY,URINE SLIGHTLY CLOUDY; COLOR,URINE YELLOW; GLUCOSE, URINE (UA) NEGATIVE (NEGATIVE); KETONES,URINE NEGATIVE (NEGATIVE); LEUKOCYTE ESTERASE ,URINE 3+ (NEGATIVE); NITRITE,URINE NEGATIVE (NEGATIVE); PH,URINE 8 (5-9); PROTEIN,URINE NEGATIVE (NEGATIVE); UROBILINOGEN,URINE NORMAL (NORMAL)
[2019-04-10 20:20] LABS: BACTERIA,URINE MODERATE /HPF
[2019-04-10] MEDS ORDERED: LACTATED RINGERS 0 ML IV ONE (20:52)
[2019-04-10] MEDS ORDERED: hydrOXYzine (VISTARIL/ATARAX) 25 MG capsule/tablet ONE (20:59)
[2019-04-10] MEDS ORDERED: LACTATED RINGERS 1,000 ML IV ONE ×2 (21:09→21:30)
[2019-04-10] MEDS ORDERED: hydrOXYzine (VISTARIL/ATARAX) 25 MG capsule/tablet PO ONE (21:15)
[2019-04-10] MEDS ORDERED: D5 LR IV SOLUTION 1,000 ML IV ONE (22:41)
[2019-04-10] MEDS ORDERED: TERBUTALINE INJ 1 MG/ML (BRETHINE) AMP SC ONE (22:45)
[2019-04-10] MEDS: D5 LR IV SOLUTION 1,000 ML IV SCH (22:55)
[2019-04-10 23:30] VITALS: BP 103/56
[2019-04-11] MEDS: D5 LR IV SOLUTION 1,000 ML IV SCH (06:58)
--- NOTE | 2019-04-11 08:00 | NUR ---
PT AND S.O. ASLEEP. WILL ALLOW THEM TO REST AT THIS TIME.
--- NOTE | 2019-04-11 08:30 | NUR ---
SEE LABOR FLOW RECORD.
[2019-04-11 08:52] VITALS: BP 116/66
--- NOTE | 2019-04-11 09:59 | Short Stay Summary ---
History of Present Illness History of Present Illness Reason for visit/HPI contractions. States that she has been having more pressure the last week. + dysuria and frequency. No LOF or bleeding. + FM Date of Admission 04/10/19 Date of Discharge 04/11/19 Time Seen by Provider: 09:54 Attending Physician Cherry Slaughter MD Admitting Physician Cherry Slaughter MD Consult Allergies and Home Medications Allergies Coded Allergies: No Known Drug Allergies (Unverified , 10/21/18) Home Medications Acetaminophen 500 Mg Tablet, 1,000 MG PO Q6H, (Reported) Buspirone HCl 15 Mg Tablet, 15 MG PO TID, (Reported) Clindamycin HCl 150 Mg Capsule, 150 MG PO Q6H Prescribed by: QUINCY REYES on 03/22/19 1144 Hydroxyzine HCl 10 Mg Tablet, 10 MG PO HS, (Reported) Nifedipine 10 Mg Capsule, 10 MG PO TID Prescribed by: QUINCY REYES on 03/22/19 1144 Pedi Mv No.79/Ferrous Fumarate 18 Mg Tab.chew, 36 MG PO DAILY, (Reported) Ranitidine HCl 150 Mg Tablet, 150 MG PO BID, (Reported) Patient Home Medication List Home Medication List Reviewed: Yes Past Ocnqbmd-Vjmiug-Ljntvm Hx Patient Social History 2nd Hand Smoke Exposure: No Physical Abuse Screen: No Sexual Abuse: No Recent Foreign Travel: No Contact w/other who traveled: No Recent Hopitalizations: No Recent Infectious Disease Expo: No Seasonal Allergies Seasonal Allergies: No Surgeries No Respiratory No Cardiovascular No Neurological No Reproductive System Expected Date of Delivery: May 08, 2019 Hx : 4 Hx Para: 3 Hx Total # of Abortions (Spona: 0 Genitourinary No Gastrointestinal Yes Gastroesophageal Reflux Musculoskeletal No Endocrine History of Endocrine Disorders: No HEENT History of HEENT Disorders: No Cancer No Psychosocial History of Psychiatric Problem: Yes Behavioral Health Disorders: Anxiety, Depression Integumentary History of Skin or Integumenta: No Review of Systems Constitutional: no symptoms reported; No chills, No fever EENTM: no symptoms reported Respiratory: no symptoms reported Cardiovascular: no symptoms reported Gastrointestinal: abdominal pain Genitourinary: dysuria, frequency Musculoskeletal: back pain Skin: no symptoms reported Psychiatric/Neurological: No Symptoms Reported Physical Exam Vital Signs Vital Signs - First Documented 04/10/19 04/11/19 19:40 08:52 Temp 97.9 Pulse 99 Resp 18 B/P (MAP) 114/74 (87) Pulse Ox 99 O2 Delivery Room Air Capillary Refill : Height, Weight, BMI Height: 5'2.00" Weight: 131lbs. 12.0oz. 59.688494ol; 24.1 BMI Method:Stated General Appearance: No Apparent Distress, WD/WN Respiratory: Chest Non Tender, No Respiratory Distress Cardiovascular: Regular Rate, Rhythm, No Edema Gastrointestinal: Soft, Tenderness Extremity: Non Tender, No Calf Tenderness, No Pedal Edema Comments SVE: 3.5/60/-1 Short Stay Diagnosis Discharge Diagnosis-Short Stay Admission Diagnosis: contractions Final Discharge Diagnosis: contractions 36 week gestation Third trimester preg Conclusion Labs Laboratory Tests 04/10/19 19:30: Urine Color YELLOW, Urine Clarity SLIGHTLY CLOUDY, Urine pH 8, Urine Specific [place] 1.010L, Urine Protein NEGATIVE, Urine Glucose (UA) NEGATIVE, Urine Ketones NEGATIVE, Urine Nitrite NEGATIVE, Urine Bilirubin NEGATIVE, Urine Urobilinogen NORMAL, Urine Leukocyte Esterase 3+H, Urine RBC (Auto) NEGATIVE, Urine RBC NONE, Urine WBC 10-25H, Urine Squamous Epithelial Cells 10-25H, Urine Crystals NONE, Urine Bacteria MODERATEH, Urine Casts NONE, Urine Mucus NEGATIVE, Urine Culture Indicated YES Conclusion/Plan 28 yo G3P@ 2 36.3 wga here for contractions. Patient was started on IVFs and given doses of Vistaril and terbutaline. She has some uterine irritability and 1-3 mild contractions per hr. She has been monitored overnight and has made no cervical change. Urine culture is pending. Will give dose of Rocephin and start visteril q6hrs until visit next monday with Dr Slaughter. Copy Copies To 1: CHERRY SLAUGHTER MD, HOLLY R MD Apr 11, 2019 09:59
[2019-04-11] MEDS ORDERED: cefTRIAXone FOR IV USE 1,000 MG in WATER (STERILE) FOR INJECTION 10 ML IV NR (10:15)
--- OUTSIDE RECORDS SUMMARY | 2019-04-11 10:15 | XMS REPORT | Continuity of Care Document ---
Author Organization Unknown Address Unknown Allergies Active Description Code Type Severity Reaction Onset Reported/Identified Relationship to Patient Clinical Status Yes No Known Drug Allergies [id number] Drug Allergy Unknown N/A 10/21/2018 Medications There [...] MD, Ot Z3A.27 27 WEEKS GESTATION OF 03/22/2019 QUINCY REYES DO Ot K08.89 OTHER SPECIFIED DISORDERS OF TEETH AND S 03/22/2019 SULTANA REYES DOA K Ot O09.213 SUPRVSN OF PREG W HISTORY OF PRE-TERM LA 03/22/2019 QUINCY REYES DO Ot O47.03 FALSE LABOR BEFORE 37 COMPLETED WEEKS OF 03/22/2019 SULTANA REYES DOA K Ot O99.613 DISEASES OF THE DGSTV SYS COMP 03/22/2019 QUINCY REYES DO Ot Z3A.33 33 WEEKS GESTATION OF Procedures There is no [...] ABO+Rh group ON NRG Transfusion band number [id number] [facility] Comprehensive metabolic panel - 10/21/18 06:26 Serum [...] 06:26 Serum or plasma choriogonadotropin measurement (units/volume) 729735 m[iU]/mL <5 Complete blood count (CBC) with [...] with reflex to culture CULTURE PENDING NRG Bacterial urine culture - 03/21/19 19:50 Bacterial urine culture 3 OR MORE NRG COLONY COUNT 60,000 cfu/ml NRG FTX;REPORTABLE SUGGESTING PROBABLE COLLECTION NRG FREE TEXT ENTRY 2 CONTAMINATION WITH SKIN SUKUMAR NRG FREE TEXT ENTRY 3 NO SUSCEPTIBILITY PERFORMED NRG Complete urinalysis with reflex to culture - 04/10/19 19:30 Urine color determination YELLOW NRG Urine clarity [...] urinalysis with reflex to culture YES NRG Encounters ACCT No. Visit Date/Time Discharge Status Pt. Type Provider Facility Loc./Unit Complaint [id number] 04/09/2019 14:40:00 ACT Outpatient [facility] [id number] 01/28/2019 14:00:00 Document Registration [id number] 12/26/2018 11:20:00 Document Registration [id number] 11/20/2018 15:00:00 Document Registration [id number] 03/21/2019 19:40:00 03/22/2019 11:45:00 DIS Outpatient QUINCY REYES DO [facility] LDRP CONTRACTIONS [id number] 02/08/2019 22:56:00 02/08/2019 23:53:00 DIS Outpatient MICAH RIOJAS MD [facility] WSo VAG LEAKAGE [id number] 01/12/2019 12:32:00 01/12/2019 15:15:00 DIS Outpatient ERIC SAINI, QUINCY Levy [facility] WSo FREQUENT URINATION,PELVIC PRESSURE [id number] 11/08/2018 07:46:00 11/08/2018 12:32:00 DIS Emergency CARA STOKES, SOLEDAD Levy [facility] ER VOMITING [id number] 10/21/2018 05:38:00 10/21/2018 07:35:00 DIS Emergency JOSUE STOKES, NEYMAR Melgoza [facility] ER ABD PAIN;11 WKS [id number] 04/10/2019 19:24:00 ACT Outpatient SHINE STOKES, MICAH Hill [facility] LDRP CONTRACTIONS
[2019-04-11] MEDS ORDERED: NIFE10CA44 PO (10:23)
[2019-04-11] MEDS ORDERED: CEFD300C3 PO (10:23)
--- NOTE | 2019-04-11 10:27 | Discharge Instructions ---
Discharge [facility] Discharge Medications New, Converted or Re-Newed RX: Transmitted to Pharmacy New Medications: Cefdinir (Cefdinir) 300 Mg Capsule 300 MG PO BID, #14 CAP Continued Medications: Acetaminophen (Tylenol Extra Strength) 500 Mg Tablet 1000 MG PO Q6H for Pain, TAB Buspirone HCl (Buspirone HCl) 15 Mg Tablet 15 MG PO TID, TAB Hydroxyzine HCl (Hydroxyzine HCl) 10 Mg Tablet 10 MG PO HS, TAB Nifedipine (Nifedipine) 10 Mg Capsule 10 MG PO TID for 21 Days, #63 CAP 0 Refills (This prescription has been renewed) Pedi Mv No.79/Ferrous Fumarate (Flintstones with Iron Tab Chew) 18 Mg Tab.chew 36 MG PO DAILY, TAB Ranitidine HCl (Zantac) 150 Mg Tablet 150 MG PO BID, TAB Discontinued Medications: Clindamycin HCl (Clindamycin HCl) 150 Mg Capsule 150 MG PO Q6H for 7 Days, #28 CAP 0 Refills Patient Instructions Goal/Follow Up Appt: Keep your appt on Monday with Sukhjinder Activity & Diet Discharge Diet: No Restrictions Activity as Tolerated: Yes Copy Copies To 1: MICAH RIOJAS MD, HOLLY R MD Apr 11, 2019 10:27
[2019-04-11 11:00] VITALS: BP 116/66
--- NOTE | 2019-04-11 11:00 | NUR ---
DISCHARGE INSTRUCTIONS REVIEWED WITH COPY TO PT. STATES UNDERSTANDING OF ALL INSTRUCTIONS AND NEED TO F/U SCHEDULED AND NEEDED. DISMISSED AMB FROM [facility] IN STABLE CONDITION ACC BY SOusmane AND 2 YR OLD IN [place].
--- OUTSIDE RECORDS SUMMARY | 2019-04-12 21:46 | XMS REPORT | Continuity of Care Document ---
Author Organization Unknown Address Unknown Allergies Active Description Code Type Severity Reaction Onset Reported/Identified Relationship to Patient Clinical Status Yes No Known Drug Allergies [id number] Drug Allergy Unknown N/A 10/21/2018 Medications There [...] ABO+Rh group ON NRG Transfusion band number [id number] [facility] Comprehensive metabolic panel - 10/21/18 [...] 06:26 Serum or plasma choriogonadotropin measurement (units/volume) 147113 m[iU]/mL <5 Complete blood count (CBC) with [...] urinalysis with reflex to culture YES NRG Bacterial urine culture - 04/10/19 19:30 Bacterial urine culture 3 OR MORE NRG COLONY COUNT 70,000 cfu/ml NRG FTX;REPORTABLE SUGGESTING PROBABLE COLLECTION NRG FREE TEXT ENTRY 2 CONTAMINATION WITH SKIN SUKUMAR NRG FREE TEXT ENTRY 3 NO SUSCEPTIBILITY PERFORMED NRG Encounters ACCT No. Visit Date/Time Discharge Status Pt. Type Provider Facility Loc./Unit Complaint [id number] 04/12/2019 14:20:00 ACT Outpatient [facility] [id number] 01/28/2019 14:00:00 Document Registration [id number] 12/26/2018 11:20:00 Document Registration [id number] 11/20/2018 15:00:00 Document Registration [id number] 04/10/2019 19:30:00 04/11/2019 10:25:00 DIS Inpatient GAMICAH LOPES MD [facility] LDRP CONTRACTIONS [id number] 03/21/2019 19:40:00 03/22/2019 11:45:00 DIS Outpatient QUINCY REYES DO [facility] LDRP CONTRACTIONS [id number] 02/08/2019 22:56:00 02/08/2019 23:53:00 DIS Outpatient MICAH RIOJAS MD [facility] WSo VAG LEAKAGE [id number] 01/12/2019 12:32:00 01/12/2019 15:15:00 DIS Outpatient QUINCY REYES DO [facility] WSo FREQUENT URINATION,PELVIC PRESSURE [id number] 11/08/2018 07:46:00 11/08/2018 12:32:00 DIS Emergency CARA STOKES, SOLEDAD Levy [facility] ER VOMITING [id number] 10/21/2018 05:38:00 10/21/2018 07:35:00 DIS Emergency JOSUE STOKES, NEYMAR Melgoza [facility] ER ABD PAIN;11 WKS
== END 2019-04-11 10:25 | disposition home or self-care (01) ==
LOC: LDRP 19:24 → WSo 19:24 → LDRP 19:30 → UNDOADMOB 21:30 → LDRP 21:30 → WSo 21:30 → UNDODISOB 04-11 11:00 → LDRP 04-12 07:10 → EDSTATUS 04-12 15:16
PROVIDERS: ADMIT Family Medicine; ATTEND Family Medicine
DX: O47.03 False labor before 37 completed weeks of gestation, third trimester (principal); Z3A.36 36 weeks gestation of pregnancy
CPT/HCPCS: 81000; 87088; 96361; 96372; 96374; 99211; G0378

== ENCOUNTER 2019-04-20 18:35 | Outpatient (CLI) | payer MEDICAID ==
[~2019-04-20] VITALS: Ht 157.5 cm; Wt 60.8 kg
[~2019-04-20 18:35] MED LIST changes: +RANI-613 PO; -RANI150T46 PO
--- NOTE | 2019-04-20 18:40 | NUR ---
HERNAN GALLEGO presented to unit via AMBULATION from ED, accompanied by SELF, with c/o PRESSURE,POSS UTI, POSS CONTRACTIONS. HERNNA GALLEGO weighed, gowned, voided, and to bed. EFHM and TOCO applied, VS taken. HERNAN GALLEGO oriented to bed controls, call light, TV, heat, and A/C controls.
[2019-04-20 18:45] VITALS: BP 116/68
--- NOTE | 2019-04-20 18:55 | NUR ---
SVE 4cm/50%/-1.
[2019-04-20 19:02] LABS: BILIRUBIN,URINE NEGATIVE (NEGATIVE); GLUCOSE, URINE (UA) NEGATIVE (NEGATIVE); KETONES,URINE NEGATIVE (NEGATIVE); LEUKOCYTE ESTERASE ,URINE 2+ (NEGATIVE); NITRITE,URINE NEGATIVE (NEGATIVE); PH,URINE 7 (5-9); PROTEIN,URINE NEGATIVE (NEGATIVE); UROBILINOGEN,URINE NORMAL (NORMAL)
[2019-04-20 19:05] LABS: CLARITY,URINE SL CLOUDY; COLOR,URINE YELLOW
[2019-04-20 19:07] LABS: BACTERIA,URINE MODERATE /HPF
--- NOTE | 2019-04-20 19:10 | NUR ---
Report to Mely Schwartz RN.
[2019-04-20] MEDS ORDERED: NIFE30TA2 PO (19:24)
[2019-04-20 19:30] VITALS: BP 103/69
--- NOTE | 2019-04-20 21:12 | NUR ---
Called Dr Fisher regarding pt adms, UA, and contractions. Plan to start IV and given Rocephin.
[2019-04-20] MEDS ORDERED: cefTRIAXone FOR IV USE 1,000 MG in WATER (STERILE) FOR INJECTION 10 ML IV ONE (21:15)
[2019-04-20] MEDS ORDERED: LACTATED RINGERS 1,000 ML IV SCH (21:15)
[2019-04-20] MEDS ORDERED: LACTATED RINGERS 1,000 ML IV ONE (21:15)
[2019-04-20] MEDS ORDERED: cefTRIAXone 1,000 MG IV (ROCEPHIN) VIAL ONE (21:16)
[2019-04-20] MEDS ORDERED: WATER (STERILE) FOR INJECTION 10 ML ONE (21:19)
[2019-04-20 22:30] VITALS: BP 102/64
[2019-04-20 22:35] VITALS: BP 102/64
--- NOTE | 2019-04-20 23:00 | NUR ---
Dr Fisher notified of no cervical change - orders to discharge 2319 Labor precautions given - discharged to home. Pt verbalizes understanding.
[2019-04-25] MEDS ORDERED: IBUP-844 PO (07:51)
--- NOTE | 2019-04-25 18:29 | Physician Query-Final Dx ---
MIKKI TOUSSAINT 04/25/19 1829: Clinic Account Progress/Dx Physician Query: Please give diagnosis Need dx and weeks of gestation Date of Service Apr 20, 2019 at 18:35 QUINCY REYES DO 05/16/19 0720: Clinic Account Progress/Dx DIAGNOSIS: Diagnosis 37wk3d Contractions, not in active labor MIKKI TOUSSAINT Apr 25, 2019 18:29 QUINCY REYES DO May 16, 2019 07:20
== END 2019-04-20 23:20 | disposition home or self-care (01) ==
LOC: WSo 18:35 → LDRP 18:35 → WSo 23:20
PROVIDERS: ATTEND Family Medicine
DX: O62.9 Abnormality of forces of labor, unspecified (principal); Z3A.37 37 weeks gestation of pregnancy
CPT/HCPCS: 81000; 87088; 96361; 96374; 99213

== ENCOUNTER 2019-04-21 20:55 | Outpatient (CLI) | payer MEDICAID ==
[~2019-04-21] VITALS: Ht 157.5 cm; Wt 61.7 kg
[~2019-04-21 20:55] MED LIST changes: +NIFE30TA2 PO
--- NOTE | 2019-04-21 21:03 | NUR ---
HERNAN GALLEGO presented to unit via from ED, accompanied by S/O, with c/o BLEEDING. HERNAN GALLEGO weighed, gowned, voided, and to bed. EFHM and TOCO applied, VS taken. HERNAN GALLEGO oriented to bed controls, call light, TV, heat, and A/C controls.
[2019-04-21 21:10] VITALS: BP 101/66
--- NOTE | 2019-04-21 21:13 | NUR ---
SVE check with no change from last night. Dr Fisher called and orders for discharge following reactive NST.
--- NOTE | 2019-04-21 21:42 | NUR ---
Pt signed written d/c and ambulated to private vehicle. Pt with SO.
[2019-04-25] MEDS ORDERED: IBUP-844 PO (07:51)
--- NOTE | 2019-04-25 18:36 | Physician Query-Final Dx ---
Clinic Account Progress/Dx Physician Query: Please give diagnosis Need dx and weeks of gestation Date of Service Apr 21, 2019 at 20:55 MIKKI TOUSSAINT Apr 25, 2019 18:36
== END 2019-04-21 21:44 | disposition home or self-care (01) ==
LOC: WSo 20:55 → LDRP 20:55 → WSo 21:44
PROVIDERS: ATTEND Family Medicine
DX: O46.90 Antepartum hemorrhage, unspecified, unspecified trimester (principal)
CPT/HCPCS: 99212

== ENCOUNTER 2019-04-23 18:10 | Inpatient (IN) | payer MEDICAID ==
[2019-04-23] VITALS (18 sets, daily range): BP systolic 111–134; BP diastolic 71–86
[~2019-04-23] VITALS: Ht 157.5 cm; Wt 60.4 kg
[~2019-04-23 18:10] MED LIST changes: -RANI-613 PO; +RANI150T46 PO
--- NOTE | 2019-04-23 18:20 | NUR ---
HERNAN GALLEGO presented to unit via AMBULATORY from ED, with c/o VAG PRESSURE. HERNAN GALLEGO weighed, gowned, voided, and to bed. EFHM and TOCO applied, VS taken. HERNAN GALLEGO oriented to bed controls, call light, TV, heat, and A/C controls.
[2019-04-23 18:42] LABS: BILIRUBIN,URINE NEGATIVE (NEGATIVE); CLARITY,URINE CLEAR; COLOR,URINE YELLOW; GLUCOSE, URINE (UA) NEGATIVE (NEGATIVE); KETONES,URINE NEGATIVE (NEGATIVE); LEUKOCYTE ESTERASE ,URINE NEGATIVE (NEGATIVE); NITRITE,URINE NEGATIVE (NEGATIVE); PH,URINE 7 (5-9); PROTEIN,URINE NEGATIVE (NEGATIVE); UROBILINOGEN,URINE NORMAL (NORMAL)
--- NOTE | 2019-04-23 18:56 | NUR ---
DR. RASCON CALLED AND NOTIFIED OF PT ARRIVAL, C/O, GESTATION, SVE. INFORMED TO CALL DR. RIOJAS.
--- NOTE | 2019-04-23 18:59 | NUR ---
DR. RIOJAS CALLED AND NOTIFIED OF PT ARRIVAL, C/O, GESTATION, REVIEW OF STRIP, UA PENDING, VSS, SVE. ORDERS RECEIVED TO ADMIT FOR LABOR.
[2019-04-23 19:08] LABS: BACTERIA,URINE TRACE /HPF; RBC,URINE 0 /HPF; WBC,URINE 0 /HPF
--- OUTSIDE RECORDS SUMMARY | 2019-04-23 19:13 | XMS REPORT | Continuity of Care Document ---
Author Organization Unknown Address Unknown Allergies Active Description Code Type Severity Reaction Onset Reported/Identified Relationship to Patient Clinical Status Yes No Known Drug Allergies [id number] Drug Allergy Unknown N/A 10/21/2018 Medications There [...] Ot Z3A.14 14 WEEKS GESTATION OF 01/12/2019 SULTANA REYES DOA Cam Ot O99.89 OTH DISEASES AND CONDITIONS COMPL [...] DO Ot Z3A.33 33 WEEKS GESTATION OF 04/11/2019 MICAH RIOJAS MD, Ot O47.03 FALSE LABOR BEFORE 37 COMPLETED WEEKS OF 04/11/2019 MICAH RIOJAS MD, Ot Z3A.36 36 WEEKS GESTATION OF Procedures There is no [...] ABO+Rh group ON NRG Transfusion band number [id number] [facility] Comprehensive metabolic panel - 10/21/18 06:26 Serum [...] or plasma urea nitrogen/creatinine mass ratio 14 [facility] Serum or plasma creatinine measurement with calculation of estimated glomerular filtration rate > [facility] Serum or plasma glucose measurement (mass/volume) 78 [...] 06:26 Serum or plasma choriogonadotropin measurement (units/volume) 650162 m[iU]/mL <5 Complete blood count (CBC) with [...] Complete urinalysis with reflex to culture YES [facility] Comprehensive metabolic panel - 11/08/18 08:35 Serum [...] TEXT ENTRY 3 NO SUSCEPTIBILITY PERFORMED NRG CULTURE, GROUP B STREP (VAGINAL) - 04/03/19 18:08 STREPTOCOCCUS, GROUP B CULTURE SEE NOTE NRG Complete urinalysis with reflex [...] Complete urinalysis with reflex to culture - 04/17/19 21:07 Urine color determination YELLOW NRG Urine clarity [...] leukocyte count by microscopy (number/high power field) RARE NRG Bacteria detection in urine sediment by light microscopy TRACE NRG Squamous epithelial cells detection in urine sediment by light microscopy 5-10 NRG Crystals detection in urine sediment by light microscopy NONE NRG Casts detection in urine sediment by light microscopy NONE NRG Mucus detection in urine sediment by light microscopy NEGATIVE NRG Complete urinalysis with reflex to culture NO NRG Complete urinalysis with reflex to culture - 04/20/19 18:45 Urine color determination YELLOW NRG Urine clarity determination SL CLOUDY NRG Urine pH measurement by test strip 7 5-9 Specific gravity of urine by test strip 1.005 1.016-1.022 Urine protein assay by test strip, [...] urinalysis with reflex to culture NO NRG Bacterial urine culture - 04/20/19 18:45 Bacterial urine culture 3 OR MORE NRG COLONY COUNT 40,000 CFU/ML NRG FTX;REPORTABLE GRAM POSITIVES, SUGGESTING PROBABLE NRG FREE TEXT ENTRY 2 COLLECTION CONTAMINATION WITH SKIN SUKUMAR NRG FREE TEXT ENTRY 3 NO SUSCEPTIBILITY PERFORMED NRG Complete urinalysis with reflex to culture - 04/23/19 18:25 Urine color determination YELLOW NRG Urine clarity determination CLEAR NRG Urine pH measurement by test strip 7 5-9 Specific gravity of urine by test strip 1.005 1.016-1.022 Urine protein assay by test strip, [...] NORMAL Urine leukocyte esterase detection by dipstick NEGATIVE NEGATIVE Automated urine sediment erythrocyte count by microscopy (number/high power field) 0 [HPF] NRG Automated urine sediment leukocyte count by microscopy (number/high power field) 0 [HPF] NRG Bacteria detection in urine sediment by light microscopy TRACE NRG Crystals detection in urine sediment by light microscopy 0 NRG Casts detection in urine sediment by light microscopy NONE NRG Mucus detection in urine sediment by light microscopy NEGATIVE NRG Complete urinalysis with reflex to culture NO NRG Encounters ACCT No. Visit Date/Time Discharge Status Pt. Type Provider Facility Loc./Unit Complaint [id number] 04/16/2019 11:40:00 04/16/2019 23:59:59 [facility] Outpatient [facility] [place] [id number] 04/03/2019 14:00:00 Document Registration [id number] 01/28/2019 14:00:00 Document Registration [id number] 12/26/2018 11:20:00 Document Registration [id number] 11/20/2018 15:00:00 Document Registration [id number] 04/21/2019 20:55:00 04/21/2019 21:44:00 DIS Outpatient QUINCY REYES DO [facility] WSo BLEEDING [id number] 04/20/2019 18:35:00 04/20/2019 23:20:00 DIS Outpatient QUINCY REYES DO [facility] WS PRESSURE,POSS UTI, POSS CONTRACTIONS [id number] 04/17/2019 20:47:00 04/17/2019 23:30:00 DIS Outpatient QUINCY REYES DO [facility] WSo CONTRACTIONS [id number] 04/10/2019 19:30:00 04/11/2019 10:25:00 DIS Outpatient MICAH RIOJAS MD [facility] LDRP CONTRACTIONS [id number] 03/21/2019 19:40:00 03/22/2019 11:45:00 DIS Outpatient QUINCY REYES DO [facility] LDRP CONTRACTIONS [id number] 02/08/2019 22:56:00 02/08/2019 23:53:00 DIS Outpatient MICAH RIOJAS MD [facility] WSo VAG LEAKAGE [id number] 01/12/2019 12:32:00 01/12/2019 15:15:00 DIS Outpatient QUINCY REYES DO [facility] WSo FREQUENT URINATION,PELVIC PRESSURE [id number] 11/08/2018 07:46:00 11/08/2018 12:32:00 DIS Emergency CARA STOKES, SOLEDAD Levy [facility] ER VOMITING [id number] 10/21/2018 05:38:00 10/21/2018 07:35:00 DIS Emergency JOSUE STOKES, NEYMAR Melgoza [facility] ER ABD PAIN;11 WKS [id number] 04/23/2019 19:08:00 Document Registration
[2019-04-23] MEDS ORDERED: MINERAL OIL CONCENTRATE 99.9% 15 ML UDC TOP PRN (19:15)
[2019-04-23] MEDS: D5 LR IV SOLUTION 1,000 ML IV SCH (20:28)
[2019-04-23 21:04] LABS: BASOPHILS % (AUTO) 0 % (0-10); EOSINOPHILS # (AUTO) 0.1 10^3/uL (0.0-0.3); EOSINOPHILS % (AUTO) 1 % (0-10); HEMATOCRIT 39 % (35-52); HEMOGLOBIN 12.9 G/DL (11.5-16.0); LYMPHOCYTES # (AUTO) 2.7 X 10^3 (1.0-4.0); LYMPHOCYTES % (AUTO) 21 % (12-44); MEAN CORPUSCULAR HGB CONC 33 G/DL (32-36); MEAN CORPUSCULAR VOLUME 97 FL (80-99); MEAN PLATELET VOLUME 11.9 FL (7.4-10.4); MONOCYTES # (AUTO) 1.2 X 10^3 (0.0-1.0); MONOCYTES % (AUTO) 9 % (0-12); NEUTROPHILS # (AUTO) 8.8 X 10^3 (1.8-7.8); NEUTROPHILS % (AUTO) 69 % (42-75); PLATELET COUNT 153 10^3/uL (130-400); WHITE BLOOD COUNT 12.9 10^3/uL (4.3-11.0)
[2019-04-23 21:08] LABS: MEAN CORPUSCULAR HEMOGLOBIN 32 PG (25-34)
[2019-04-23] MEDS ORDERED: SUFENTA 0.6MCG/ML BUPIVA 0.125 100 ML ONE (21:21)
[2019-04-23] MEDS ORDERED: LACTATED RINGERS 1,000 ML IV ONE ×2 (21:21→23:20)
[2019-04-23] MEDS ORDERED: fentaNYL INJECTION 100 MCG/2 ML AMP ONE (23:04)
[2019-04-23] MEDS: EPIDURAL (SUFENTA 0.6MCG/ML BUPIVA 0.125%) 100 ML BAG EPI PRN (23:06)
[2019-04-23] MEDS ORDERED: NALOXONE 0.4 MG/ML 1 ML (NARCAN) VIAL IV PRN ×2 (23:30)
[2019-04-23] MEDS ORDERED: METOCLOPRAMIDE INJ 10 MG/2 ML (REGLAN) IV PRN (23:30)
[2019-04-23] MEDS ORDERED: diphenhydrAMINE 50 MG/ML INJ (BENADRYL) IV PRN (23:30)
[2019-04-23] MEDS ORDERED: ONDANSETRON 4 MG/2 ML (SDV) Z0FRAN IV PRN (23:30)
[2019-04-23] MEDS ORDERED: OXYTOCIN/NORMAL SALINE 500 ML IV SCH (23:46)
[2019-04-24] VITALS (45 sets, daily range): BP systolic 96–144; BP diastolic 57–93
[2019-04-24] MEDS: CATHETER FLUSH 10 ML SYR IV SCH ×2 (00:44→07:06)
[2019-04-24] MEDS: D5 LR IV SOLUTION 1,000 ML IV SCH (04:11)
[2019-04-24] MEDS: EPIDURAL (SUFENTA 0.6MCG/ML BUPIVA 0.125%) 100 ML BAG EPI PRN (07:04)
--- NOTE | 2019-04-24 07:45 | History & Physical-OB ---
OB - Chief Complaint & HPI Date/Time Date of Admission: Date of Admission: Apr 23, 2019 at 19:03 Date seen by a Provider: Apr 24, 2019 Time Seen by a Provider: 07:25 Chief Complaint/History OB-Reason for Admission/Chief: Onset of Labor (Increased pressure and pain) Hx : 4 Hx Para: 3 Expected Date of Delivery: May 08, 2019 Gestational Age in Weeks: 37 Gestational Age in Days: 6 Other reason for admission: Advanced dilation in multiparous mother. Increased pain and pressure Other O neg, Ab neg Rub Imm HIV/RPR/HepB NR GC/chyl Neg Normal 1 hr GTT GBS Neg Allergies and Home Medications Allergies Coded Allergies: No Known Drug Allergies (Unverified , 10/21/18) Home Medications Acetaminophen 500 Mg Tablet, 1,000 MG PO Q6H, (Reported) Buspirone HCl 15 Mg Tablet, 15 MG PO BID, (Reported) Hydroxyzine HCl 10 Mg Tablet, 10 MG PO HS, (Reported) Nifedipine 30 Mg Tab.er.24, 30 MG PO DAILY, (Reported) Pedi Mv No.79/Ferrous Fumarate 18 Mg Tab.chew, 2 TAB.CHEW PO DAILY, (Reported) Ranitidine HCl 150 Mg Tablet, 150 MG PO BID, (Reported) Patient Home Medication List Home Medication List Reviewed: Yes OB - History Hx of Present Care: Yes Ultrasounds: Normal mid trimester US Obstetrical Complications: None Medical Complications: None Information Induced Hypertension: No Maternal Gestational Diabetes: No Hemorrhage: No Obstetrical History Hx : 4 Hx Para: 3 Hx # Term Pregnancies: 1 Hx # Pregnancies: 2 Number of Living Children: 3 Hx Total # of Abortions (Spona: 0 Patient Past Medical History UTI in preg Social History/Family History HIV/AIDS: No Recent Infectious Disease Expo: No Sexually Transmitted Disease: Yes Alcohol Use: Denies Use Recreational Drug Use: No 2nd Hand Smoke Exposure: No Immunizations Tetanus Booster (TDap): Less than 5yrs (03/06/19) Rubella: immune RPR/VDRL: Negative GBS Status: Negative HBsAG: Negative OB - Admission Exam Physical Exam Vitals: Vital Signs 04/24/19 04/24/19 05:15 07:00 Temp 98.1 Pulse 101 Resp 18 B/P (MAP) 110/75 (87) Pulse Ox 97 O2 Delivery Room Air HEENT: NCAT Heart: Rhythm Normal Lungs: Clear Abdomen: Gravid Extremities: Normal Reflexes: Normal Cervical Dilatation: 7cm Effacement: 75% Station: 0 Membranes: Ruptured Amniotic Fluid: Clear Decelerations: No Decelerations Contractions on Admission: < 5 Minutes Apart Labs Laboratory Tests Test 04/23/19 18:25 04/23/19 20:50 Range/Units Urine Color YELLOW Urine Clarity CLEAR Urine pH 7 5-9 Urine Specific Deport 1.005 L 1.016-1.022 Urine Protein NEGATIVE NEGATIVE Urine Glucose (UA) NEGATIVE NEGATIVE Urine Ketones NEGATIVE NEGATIVE Urine Nitrite NEGATIVE NEGATIVE Urine Bilirubin NEGATIVE NEGATIVE Urine Urobilinogen NORMAL NORMAL MG/DL Urine Leukocyte Esterase NEGATIVE NEGATIVE Urine RBC (Auto) NEGATIVE NEGATIVE Urine RBC 0 /HPF Urine WBC 0 /HPF Urine Crystals 0 /LPF Urine Bacteria TRACE /HPF Urine Casts NONE /LPF Urine Mucus NEGATIVE /LPF Urine Culture Indicated NO White Blood Count 12.9 H 4.3-11.0 10^3/uL Red Blood Count 3.97 L 4.35-5.85 10^6/uL Hemoglobin 12.9 11.5-16.0 G/DL Hematocrit 39 35-52 % Mean Corpuscular Volume 97 80-99 FL Mean Corpuscular Hemoglobin 32 25-34 PG Mean Corpuscular Hemoglobin Concent 33 32-36 G/DL Red Cell Distribution Width 13.0 10.0-14.5 % Platelet Count 153 130-400 10^3/uL Mean Platelet Volume 11.9 H 7.4-10.4 FL Neutrophils (%) (Auto) 69 42-75 % Lymphocytes (%) (Auto) 21 12-44 % Monocytes (%) (Auto) 9 0-12 % Eosinophils (%) (Auto) 1 0-10 % Basophils (%) (Auto) 0 0-10 % Neutrophils # (Auto) 8.8 H 1.8-7.8 X 10^3 Lymphocytes # (Auto) 2.7 1.0-4.0 X 10^3 Monocytes # (Auto) 1.2 H 0.0-1.0 X 10^3 Eosinophils # (Auto) 0.1 0.0-0.3 10^3/uL Basophils # (Auto) 0.0 0.0-0.1 10^3/uL OB - Assessment/Plan/Diagnosis Assessment Assessment: active labor, rupture of membranes Admission Dx Advanced dilation in multiparous patient 37 week gestation Third trimester Admission Status: Inpatient Order (span 2 midnights) Reason for Inpatient Admission: Labor Plan Plan: Expectant Management Other Plan 28 yo @ 37.1 here for advance dilation and labor Plan AROM 0725 Clear Augment labor with pitocin Expectant management GBS neg Copy Copies To 1: MICAH RIOJAS MD, HOLLY R MD Apr 24, 2019 07:45
[2019-04-24] MEDS: OXYTOCIN/NORMAL SALINE 500 ML IV SCH ×2 (08:51→09:20)
--- NOTE | 2019-04-24 09:13 | OB Labor & Delivery Record ---
Vag Delivery Note Vag Delivery Note Date of Delivery: 04/24/19 Preoperative Diagnosis: Veronica Victor is a (28 /Para 4 / 3, Gestational Age (wks)37.1 here for onset of labor Postoperative Diagnosis: Same Surgeon: MICAH RIOJAS Director Network Development: None Anesthesia: Epidural Delivery Type: @ 0725 Findings: Viable male , apgars 9/9, weight 7#7, 3365 grams Lacerations: skin tear that was not repair Intact placenta with 3 vessel cord. No nuchal cord, body cord or shoulder dystocia Estimated Blood Loss: 125 ml Complications: None Condition: Stable Description of Procedure: The patient is a 28 year old female G4 now P4 who presented in labor that was then augmented with pitocin. She was admitted and informed consent was obtained. Her labor course was unremarkable. She progressed to complete dilatation and began to push. She was then set up for delivery. The infant's head was delivered atraumatically in the EARLINE position. The shoulders and remainder of the 's body were then delivered without difficulty. Upon delivery, the head was held below the level of the perineum and the mouth and nares were bulb suctioned. The cord was doubly clamped and cut after a 2 min delay and the was place on maternal abdomen and attended to by pediatric staff. An intact placenta with 3-vessel cord delivered via Nguyễn and there was found to be minimal bleeding.~ Vigorous fundal massage was performed and the fundus was found to be firm. IV oxytocin was given. Examination of the vagina and perineum revealed a mild skin tear at introitus that did not need repair. Following the repair, sponge, instrument and needle counts were correct. Mom and baby were both in stable condition in the labor suite. Vitals - Labs Vital Signs - I&O Vital Signs Date Time Temp Pulse Resp B/P (MAP) Pulse Ox O2 Delivery O2 Flow Rate FiO2 04/24/19 07:45 112 18 124/77 (93) 100 Room Air 04/24/19 07:30 107 18 124/77 (93) Room Air 04/24/19 07:23 98.6 04/24/19 07:15 101 18 108/71 (83) Room Air 04/24/19 07:00 101 18 110/75 (87) 97 Room Air 04/24/19 06:45 88 18 96/62 (73) 96 Room Air 04/24/19 06:30 106 18 106/70 (82) 96 Room Air 04/24/19 06:15 104 18 107/69 (82) 98 Room Air 04/24/19 06:00 103 18 108/77 (87) 99 Room Air 04/24/19 05:45 109 18 117/74 (88) 99 Room Air 04/24/19 05:30 104 18 111/74 (86) 100 Room Air 04/24/19 05:15 98.1 110 18 118/76 (90) 99 Room Air 04/24/19 05:00 118 18 106/68 (81) 99 Room Air 04/24/19 04:45 123 18 106/69 (81) 99 Room Air 04/24/19 04:30 93 16 108/71 (83) 99 Room Air 04/24/19 04:15 93 16 108/74 (85) 100 Room Air 04/24/19 04:00 94 16 109/68 (82) 98 Room Air 04/24/19 03:45 98 16 111/71 (84) 98 Room Air 04/24/19 03:30 98.9 96 16 110/74 (86) 100 Room Air 04/24/19 03:15 93 16 103/65 (78) 98 Room Air 04/24/19 03:00 103 16 101/67 (78) 99 Room Air 04/24/19 02:45 100 16 97/63 (74) 98 Room Air 04/24/19 02:30 94 16 115/61 (79) 100 Room Air 04/24/19 02:15 96 16 101/57 (72) 98 Room Air 04/24/19 02:00 98 16 100/62 (75) 100 Room Air 04/24/19 01:45 89 16 106/67 (80) 100 Room Air 04/24/19 01:30 92 16 114/67 (83) 100 Room Air 04/24/19 01:15 97.9 85 16 119/76 (90) 98 Room Air 04/24/19 01:00 89 16 120/80 (93) 98 Room Air 04/24/19 00:45 84 16 115/72 (86) 97 Room Air 04/24/19 00:30 87 16 115/77 (90) 100 Room Air 04/24/19 00:15 90 16 123/82 (96) 100 Room Air 04/24/19 00:00 90 16 117/73 (88) 97 Room Air 04/23/19 23:48 90 18 112/75 (87) 97 Room Air 04/23/19 23:43 93 18 112/73 (86) 98 Room Air 04/23/19 23:36 96 18 132/86 (101) 98 Room Air 04/23/19 23:33 96 18 123/76 (92) 97 Room Air 04/23/19 23:30 87 18 115/72 (86) 97 Room Air 04/23/19 23:26 88 18 115/73 (87) 97 Room Air 04/23/19 23:24 93 18 118/76 (90) 99 Room Air 04/23/19 23:21 95 18 120/78 (92) 99 Room Air 04/23/19 23:18 100 18 119/80 (93) 99 Room Air 04/23/19 23:15 102 18 124/81 (95) 99 Room Air 04/23/19 23:10 92 18 120/79 (93) 100 Room Air 04/23/19 23:05 95 18 134/77 (96) 100 Room Air 04/23/19 23:00 106 18 116/71 (86) 99 Room Air 04/23/19 22:55 111 18 121/74 (90) 100 Room Air 04/23/19 22:50 103 18 124/78 (93) Room Air 04/23/19 22:30 87 18 116/74 (88) Room Air 04/23/19 20:15 98.7 101 18 111/74 (86) Room Air 04/23/19 18:34 98.2 92 18 114/76 (89) Room Air I & O 04/24/19 07:00 Intake Total 2400 ml Output Total 650 ml Balance 1750 ml Labs Laboratory Tests 04/23/19 18:25: Urine Color YELLOW, Urine Clarity CLEAR, Urine pH 7, Urine Specific [place] 1.005L, Urine Protein NEGATIVE, Urine Glucose (UA) NEGATIVE, Urine Ketones NEGATIVE, Urine Nitrite NEGATIVE, Urine Bilirubin NEGATIVE, Urine Urobilinogen NORMAL, Urine Leukocyte Esterase NEGATIVE, Urine RBC (Auto) NEGATIVE, Urine RBC 0, Urine WBC 0, Urine Crystals 0, Urine Bacteria TRACE, Urine Casts NONE, Urine Mucus NEGATIVE, Urine Culture Indicated NO 04/23/19 20:50: White Blood Count 12.9H, Red Blood Count 3.97L, Hemoglobin 12.9, Hematocrit 39, Mean Corpuscular Volume 97, Mean Corpuscular Hemoglobin 32, Mean Corpuscular Hemoglobin Concent 33, Red Cell Distribution Width 13.0, Platelet Count 153, Mean Platelet Volume 11.9H, Neutrophils (%) (Auto) 69, Lymphocytes (%) (Auto) 21, Monocytes (%) (Auto) 9, Eosinophils (%) (Auto) 1, Basophils (%) (Auto) 0, Neutrophils # (Auto) 8.8H, Lymphocytes # (Auto) 2.7, Monocytes # (Auto) 1.2H, Eosinophils # (Auto) 0.1, Basophils # (Auto) 0.0 MICAH RIOJAS MD Apr 24, 2019 09:13
[2019-04-24] MEDS ORDERED: BENZOCAINE/MENTHOL (DERMOPLAST) 56 ML CAN TP PRN (09:15)
[2019-04-24] MEDS ORDERED: WITCH HAZEL(TUCKS) 40 EA JAR TOP PRN (09:15)
--- NOTE | 2019-04-24 11:35 | NUR ---
pt transferred to room 306 via w/c with @ side. in open air crib. call light within reach.
[2019-04-24] MEDS: IBUPROFEN 600 MG (MOTRIN) TAB PO SCH ×2 (11:46→18:35)
[2019-04-24] MEDS ORDERED: CATHETER FLUSH 10 ML SYR IV SCH (14:00)
--- NOTE | 2019-04-24 19:30 | NUR ---
report given to next shift.
[2019-04-24] MEDS: DOCUSATE SODIUM 100 MG (COLACE) CAP PO SCH (22:04)
[2019-04-25] MEDS: IBUPROFEN 600 MG (MOTRIN) TAB PO SCH ×4 (00:19→14:19)
[2019-04-25 04:06] VITALS: BP 112/73
[2019-04-25 05:24] LABS: BASOPHILS % (AUTO) 0 % (0-10); EOSINOPHILS # (AUTO) 0.2 10^3/uL (0.0-0.3); EOSINOPHILS % (AUTO) 1 % (0-10); HEMATOCRIT 34 % (35-52); HEMOGLOBIN 11.3 G/DL (11.5-16.0); LYMPHOCYTES # (AUTO) 3.5 X 10^3 (1.0-4.0); LYMPHOCYTES % (AUTO) 22 % (12-44); MEAN CORPUSCULAR HEMOGLOBIN 33 PG (25-34); MEAN CORPUSCULAR HGB CONC 34 G/DL (32-36); MEAN CORPUSCULAR VOLUME 98 FL (80-99); MEAN PLATELET VOLUME 11.8 FL (7.4-10.4); MONOCYTES # (AUTO) 1.9 X 10^3 (0.0-1.0); MONOCYTES % (AUTO) 12 % (0-12); NEUTROPHILS # (AUTO) 10.2 X 10^3 (1.8-7.8); NEUTROPHILS % (AUTO) 65 % (42-75); PLATELET COUNT 134 10^3/uL (130-400); WHITE BLOOD COUNT 15.8 10^3/uL (4.3-11.0)
[2019-04-25] MEDS: PRENATAL VITAMIN 1 EA TAB PO SCH ×2 (06:01→06:03)
[2019-04-25] MEDS ORDERED: IBUP-844 PO (07:51)
--- NOTE | 2019-04-25 07:52 | Discharge Instructions ---
Discharge Inst-Women's Serv Depart Medications New, Converted or Re-Newed RX: Transmitted to Pharmacy New Medications: Ibuprofen (Ibu) 600 Mg Tablet 600 MG PO Q6H PRN for PAIN-MODERATE, #60 TAB 0 Refills Continued Medications: Acetaminophen (Tylenol Extra Strength) 500 Mg Tablet 1000 MG PO Q6H for Pain, TAB Buspirone HCl (Buspirone HCl) 15 Mg Tablet 15 MG PO BID, TAB Hydroxyzine HCl (Hydroxyzine HCl) 10 Mg Tablet 10 MG PO HS, TAB Pedi Mv No.79/Ferrous Fumarate (Flintstones with Iron Tab Chew) 18 Mg Tab.chew 2 TAB.CHEW PO DAILY, TAB Discontinued Medications: Nifedipine (Procardia Xl) 30 Mg Tab.er.24 30 MG PO DAILY, TAB Ranitidine HCl (Zantac) 150 Mg Tablet 150 MG PO BID, TAB Follow Up/Instructions Goal/Follow Up: Follow up with Dr. Slaughter in 6 weeks for visit. Activity Activity: Activity as Tolerated (avoid strenuous activity x 6 weeks) Driving Instructions: You May Drive Nothing Inside Vagina: No Douching, No [place], No Tampons Diet Discharge Diet: No Restrictions Symptoms to Report to : Pain Increased, Fever Over 101 Degrees F, Pain/Pressure in Chest, Vaginal Bleeding Increase, Vaginal Discharge Foul, Nausea/Vomiting, Shortness of Breath For Any Problems or Questions: Contact Your Physician Copies To 1: MICAH SLAUGHTER MD,SAMARIA Vargas MD Apr 25, 2019 07:52
[2019-04-25 08:35] VITALS: BP 106/68
[2019-04-25] MEDS: DOCUSATE SODIUM 100 MG (COLACE) CAP PO SCH (08:35)
--- NOTE | 2019-04-25 08:35 | NUR ---
initial shift assessment completed, see interventions for further.
--- NOTE | 2019-04-25 08:40 | NUR ---
up to shower.
[2019-04-25 08:42] VITALS: BP_SYST 102; BP_SYST 106; BP_DIAS 64; BP_DIAS 68
[2019-04-25 14:19] VITALS: BP 108/68
--- NOTE | 2019-04-25 14:59 | Anesthesia-Regional Post-Op ---
Regional Patient Condition Mental Status: Alert, Oriented x3 Circulation: Same as Pre-Op Headache: Absent Sensation: Full Recovery Motor Block: Absent Post Op Complications Complications None Follow Up Care/Instructions Patient Instructions None needed. Anesthesia/Patient Condition Patient is doing well, no complaints, stable vital signs, no apparent adverse anesthesia problems. No complications reported per nursing. MIRZA ALEMAN CRNA Apr 25, 2019 14:59
--- NOTE | 2019-04-25 15:14 | NUR ---
dismissal instructions given, verbalizes understanding. reviewed dismissal Rx. signature page signed, placed on chart. Addendum: 04/25/19 at 1727 by REYNOLD GALLEGO RN dismissed to rooming in status until dismissed from hospital.
--- NOTE | 2019-04-25 23:00 | Discharge Summary ---
Diagnosis/Chief Complaint Date of Admission Apr 23, 2019 at 19:03 Date of Discharge Apr 25, 2019 at 15:14 Admission Diagnosis Admission Diagnosis Active labor at term 37 weeks gestation Discharge Diagnosis s/p spontaneous vaginal delivery Discharge Summary-Simple/Stand Discharge Physical Examination Allergies: Coded Allergies: No Known Drug Allergies (Unverified , 10/21/18) Vitals & I&Os Vital Sign - Last 12Hours Date Time Temp Pulse Resp B/P (MAP) Pulse Ox O2 Delivery O2 Flow Rate FiO2 04/25/19 14:19 98.9 70 18 108/68 (81) 98 Room Air General Appearance: Alert, No Acute Distress Respiratory: Clear to Auscultation, Normal Air Movement Cardiovascular: Regular Rate, No Murmurs Abdominal: Other (fundus firm below umbilicus) Psych/Mental Status: Mood NL Hospital Course Was the Problem List Reviewed?: Yes Uncomplicated labor and delivery and course. Labs Laboratory Tests Test 04/25/19 05:05 Range/Units White Blood Count 15.8 H 4.3-11.0 10^3/uL Red Blood Count 3.43 L 4.35-5.85 10^6/uL Hemoglobin 11.3 L 11.5-16.0 G/DL Hematocrit 34 L 35-52 % Mean Corpuscular Volume 98 80-99 FL Mean Corpuscular Hemoglobin 33 25-34 PG Mean Corpuscular Hemoglobin Concent 34 32-36 G/DL Red Cell Distribution Width 13.0 10.0-14.5 % Platelet Count 134 130-400 10^3/uL Mean Platelet Volume 11.8 H 7.4-10.4 FL Neutrophils (%) (Auto) 65 42-75 % Lymphocytes (%) (Auto) 22 12-44 % Monocytes (%) (Auto) 12 0-12 % Eosinophils (%) (Auto) 1 0-10 % Basophils (%) (Auto) 0 0-10 % Neutrophils # (Auto) 10.2 H 1.8-7.8 X 10^3 Lymphocytes # (Auto) 3.5 1.0-4.0 X 10^3 Monocytes # (Auto) 1.9 H 0.0-1.0 X 10^3 Eosinophils # (Auto) 0.2 0.0-0.3 10^3/uL Basophils # (Auto) 0.0 0.0-0.1 10^3/uL Discharge Instructions to patient/family Please see electronic discharge instructions given to patient. Discharge Medications Reviewed and agree with Discharge Medication list on patient's Discharge Instruction sheet Clinical Quality Measures DVT/VTE Risk/Contraindication: Risk Factor Score Per Nursin RFS Level Per Nursing on Admit: 1=Low/No VTE PPX Copy Copies To 1: MICAH RIOJAS MD, BETHANY N MD Apr 25, 2019 23:00
== END 2019-04-25 15:14 | disposition home or self-care (01) | DRG 807 ==
LOC: LDRP 18:10 → WSo 18:10 → LDRP 19:03 → WSo 19:03 → WS 04-24 11:35
PROVIDERS: ADMIT Family Medicine; ATTEND Family Medicine
PROC: 10E0XZZ Delivery of Products of Conception, External Approach (ICD-10-PCS; principal; 2019-04-24)
DX: O70.0 First degree perineal laceration during delivery (principal); Z37.0 Single live birth; Z3A.37 37 weeks gestation of pregnancy
CPT/HCPCS: 36415; 81000; 85025; 86850; 86870; 86900; 86901; 99212

== ENCOUNTER 2019-06-07 04:33 | Emergency (ER) | payer MEDICAID ==
[~2019-06-07] VITALS: Ht 157.5 cm; Wt 55.8 kg
[~2019-06-07 04:33] MED LIST changes: +IBUP-844 PO; +RANI-613 PO; -RANI150T46 PO
--- NOTE | 2019-06-07 06:11 | ED EENT ---
History of Present Illness General Chief Complaint: Oral/Throat Problems Stated Complaint: CONGESTION Nursing Triage Note: sore throat, chest congestion x2 days. Source: patient, family Exam Limitations: no limitations History of Present Illness Date Seen by Provider: Jun 07, 2019 Time Seen by Provider: 06:06 Initial Comments 21-year-old white female presents with cough and congestion for the last few days with an associated sore throat. Multiple family members and then ill with similar illness last week. There's been no associated severe headache and stiff neck or photophobia. No nausea vomiting or diarrhea has been present. Patient's son who has had them similar symptoms as been diagnosed with pneumonia and placed on antibiotics but there's been no change in this child. The cough has been nonproductive. Allergies and Home Medications Allergies Coded Allergies: No Known Drug Allergies (Unverified , 10/21/18) Home Medications Buspirone HCl 15 Mg Tablet, 15 MG PO BID, (Reported) Patient Home Medication List Home Medication List Reviewed: Yes Review of Systems Review of Systems Constitutional: see HPI; No chills, No fever Eyes: Denies Blindness Ears: Denies Dizziness, Denies Bloody Discharge Nose: denies epistaxis, denies bloody discharge Mouth: denies swelling Throat: pain; denies neck stiffness Respiratory: see HPI, cough; No short of breath Cardiovascular: No chest pain Gastrointestinal: No abdominal pain, No diarrhea, No nausea, No vomiting Musculoskeletal: no symptoms reported Skin: no symptoms reported Neurological: No Symptoms Reported Hematologic/Lymphatic: No Symptoms Reported Immunological/Allergic: no symptoms reported Past Tlcicyd-Bqkzgq-Tcaujb Hx Past Med/Social Hx: Reviewed Nursing Past Med/Soc Hx Patient Social History Alcohol Use: Denies Use Recreational Drug Use: No Smoking Status: Current Everyday Smoker Type Used: Cigarettes 2nd Hand Smoke Exposure: No Recent Foreign Travel: No Contact w/Someone Who Travel: No Recent Infectious Disease Expo: No Recent Hopitalizations: No Immunizations Up To Date Tetanus Booster (TDap): Less than 5yrs Seasonal Allergies Seasonal Allergies: No Past Medical History Surgeries: No Respiratory: No Cardiac: No Neurological: No : No Sexually Transmitted Disease: Yes HIV/AIDS: No Genitourinary: No Gastrointestinal: Yes Gastroesophageal Reflux Musculoskeletal: No Endocrine: No HEENT: No Cancer: No Psychosocial: Yes Anxiety, Depression Integumentary: No Blood Disorders: No Family Medical History Anxiety disorder 19 MOTHER FH: breast cancer 19 MOTHER Hypertension G8 BROTHER Physical Exam Vital Signs Vital Signs - First Documented 06/07/19 04:53 Temp 98.4 Pulse 90 Resp 16 B/P (MAP) 114/78 (90) Pulse Ox 98 O2 Delivery Room Air Height, Weight, BMI Height: 5'2.00" Weight: 123lbs. 0oz. 55.639059yt; 24.4 BMI Method:Stated General Appearance: WD/WN, no apparent distress Eyes: bilateral eye normal inspection Ears: bilateral ear auricle normal Nose: normal inspection Mouth/Throat: normal mouth inspection; No tonsillar exudate Neck: non-tender, full range of motion, supple Cardiovascular: normal peripheral pulses, regular rate, rhythm Respiratory: chest non-tender, lungs clear, normal breath sounds Gastrointestinal: normal bowel sounds, non tender, soft Neurologic/Psychiatric: no motor/sensory deficits, alert Skin: normal color, warm/dry Progress/Results/Core Measures Results/Orders Lab Results Laboratory Tests Test 06/07/19 05:49 Range/Units Group A Streptococcus Screen NEGATIVE NEGATIVE Micro Results Microbiology 06/07/19 Influenza Types A,B Antigen (LASHONDA) - Final, Complete Vital Signs/I&O 06/07/19 04:53 Temp 98.4 Pulse 90 Resp 16 B/P (MAP) 114/78 (90) Pulse Ox 98 O2 Delivery Room Air Blood Pressure Mean: 90 Progress Progress Note : Time: 09:25 Progress Note The patient's laboratory evaluation demonstrated a negative strep, flu a and B, and RSV. Patient was reassured that this represents most likely a viral infection. I asked that she follow-up closely with the on license of [facility] for her children as well as herself. I invited her to return to the emergency department should any further problems or questions. Departure Impression Primary Impression: Viral URI Disposition: 01 HOME, SELF-CARE Condition: Unchanged Departure-Patient Inst. Decision time for Depature: 09:26 Referrals: MICAH RIOJAS MD (PCP/Family) Primary Care Physician Patient Instructions: Viral Upper Respiratory Infection, Adult (DC) NEYMAR SALAS MD Jun 07, 2019 06:11
[2019-06-07 09:55] VITALS: BP 116/80
== END 2019-06-07 09:55 | disposition home or self-care (01) ==
LOC: EDUNIT# 04:33 → ER 04:35
DX: J06.9 Acute upper respiratory infection, unspecified (principal); K21.9 Gastro-esophageal reflux disease without esophagitis; F41.9 Anxiety disorder, unspecified; F32.9 Major depressive disorder, single episode, unspecified; F17.210 Nicotine dependence, cigarettes, uncomplicated; Z80.3 Family history of malignant neoplasm of breast; Z82.49 Family history of ischemic heart disease and other diseases of the circulatory system
CPT/HCPCS: 87430; 87804

== ENCOUNTER 2019-06-13 22:29 | Emergency (ER) | payer MEDICAID ==
[~2019-06-13] VITALS: Ht 153.5 cm; Wt 52.3 kg
[2019-06-13] MEDS ORDERED: AMOX-358 PO (23:04)
--- NOTE | 2019-06-13 23:04 | ED Integumentary General ---
General Chief Complaint: Allergic Reaction Stated Complaint: STUNG BY A WASP, SWOLLEN, BREAKING OUT IN HIVES Source: patient, family, spouse Exam Limitations: no limitations History of Present Illness Date Seen by Provider: Jun 13, 2019 Time Seen by Provider: 22:51 Initial Comments Patient presents to ER by private conveyance with chief complaint that about 1:00 this afternoon she was stung by a red wasp wings. He was on her left trapezius. Since anything of it until tonight it started getting red and had a small blister. She's had no fevers nausea vomiting chills. She does not have an allergy to wasps. No difficulty breathing and swallowing or stridor. Allergies and Home Medications Allergies Coded Allergies: No Known Drug Allergies (Unverified , 10/21/18) Home Medications Buspirone HCl 15 Mg Tablet, 15 MG PO BID, (Reported) Patient Home Medication List Home Medication List Reviewed: Yes Review of Systems Review of Systems Constitutional: No chills, No diaphoresis EENTM: No eye pain, No tearing Respiratory: No cough, No dyspnea on exertion Cardiovascular: No chest pain, No palpitations Gastrointestinal: No abdominal pain, No constipation Past Uamxrcw-Atlgid-Fctvez Hx Patient Social History Alcohol Use: Denies Use Recreational Drug Use: No Smoking Status: Current Everyday Smoker Type Used: Cigarettes 2nd Hand Smoke Exposure: No Recent Foreign Travel: No Contact w/Someone Who Travel: No Recent Hopitalizations: No Immunizations Up To Date Tetanus Booster (TDap): Less than 5yrs Seasonal Allergies Seasonal Allergies: No Past Medical History Surgeries: No Respiratory: No Cardiac: No Neurological: No Sexually Transmitted Disease: Yes HIV/AIDS: No Genitourinary: No Gastrointestinal: Yes Gastroesophageal Reflux Musculoskeletal: No Endocrine: No HEENT: No Cancer: No Psychosocial: Yes Anxiety, Depression Integumentary: No Blood Disorders: No Family Medical History Anxiety disorder 19 MOTHER FH: breast cancer 19 MOTHER Hypertension G8 BROTHER Physical Exam Vital Signs Capillary Refill : General Appearance: WD/WN, no apparent distress HEENT: PERRL/EOMI, normal ENT inspection, pharynx normal Neck: non-tender, full range of motion, supple, normal inspection Cardiovascular: normal peripheral pulses, regular rate, rhythm Skin: other (patch 3 x 4 cm erythema with a central small clear vesicle but no palpable induration, fluctuance or stinger found.) Progress/Results/Core Measures Progress Progress Note : Time: 23:01 Progress Note No evidence of anaphylaxis or allergy to sting envenomation. As a potential she could be developing some cellulitis although in 1 day seems less likely. Plan to put her on Augmentin tomorrow if it's growing. Departure Impression Primary Impression: Accidental wasp sting Additional Impression: Cellulitis Qualified Codes: L03.221 - Cellulitis of neck Disposition: 01 HOME, SELF-CARE Condition: Stable Departure-Patient Inst. Decision time for Depature: 23:02 Referrals: MICAH RIOJAS MD (PCP/Family) Primary Care Physician Patient Instructions: Insect Bites and Stings (DC) Add. Discharge Instructions: Keep the area clean with regular soap and water. If it's growing tomorrow start the Augmentin one capsule twice daily with food. Follow-up if not seeing improvement in 3-4 days with primary care. Return to the ER if you have difficulty breathing, swallowing, intractable nausea with vomiting or fever. All discharge instructions reviewed with patient and/or family. Voiced understanding. Scripts Amoxicillin/Potassium Clav (Augmentin 875-125 Tablet) 1 Each Tablet 1 EACH PO BID for 7 Days, #14 TAB 0 Refills Prov: JHON GERBER 06/13/19 JHON GERBER Jun 13, 2019 23:04
[2019-06-13 23:10] VITALS: BP 115/70
== END 2019-06-13 23:11 | disposition home or self-care (01) ==
LOC: EDUNIT# 22:29 → ER 22:31
DX: T63.461A Toxic effect of venom of wasps, accidental (unintentional), initial encounter (principal); L03.221 Cellulitis of neck; K21.9 Gastro-esophageal reflux disease without esophagitis; F41.9 Anxiety disorder, unspecified; F32.9 Major depressive disorder, single episode, unspecified; F17.210 Nicotine dependence, cigarettes, uncomplicated; Z80.3 Family history of malignant neoplasm of breast; Z82.49 Family history of ischemic heart disease and other diseases of the circulatory system
CPT/HCPCS: 99282

== ENCOUNTER 2019-07-28 13:12 | Emergency (ER) | payer MEDICAID ==
[~2019-07-28] VITALS: Ht 157.4 cm; Wt 52.1 kg
[~2019-07-28 13:12] MED LIST changes: +AMOX-358 PO
[2019-07-28] MEDS ORDERED: FAMO40TA6 (13:44)
[2019-07-28] MEDS ORDERED: RANI150T11 (13:44)
[2019-07-28] MEDS ORDERED: METR70GE16 VG (14:10)
--- NOTE | 2019-07-28 14:10 | ED GU-Female ---
General Chief Complaint: - Urinary Stated Complaint: VAGINAL DISCHARGE/BLADDER INCONTINENCE Nursing Triage Note: STATES SHE WAS SEEN AT [facility] ET CHECKED FOR A UTI WHICH WAS NEGITIVE AND PRESCRIBED A VAGIANL CREAM FOR A YELLOW DISCHARGE. UNABLE TO EVENT PRODUCER THE SCRIPT UNTIL MONDAY BUT STATES NOW SHE IS INC OF URINE. Nursing Sepsis Screen: No Definite Risk History of Present Illness Date Seen by Provider: Jul 28, 2019 Time Seen by Provider: 13:40 Initial Comments 29-year-old female presents for a new prescription for her vaginal cream. She reports her symptoms have not changed but she was unable to get the prescription yesterday because the pharmacy closed and will not reopen until Monday. Timing/Duration: intermittent Severity/Quality: mild Sexual [place] History: less than 2 months ago, single partner Associated Symptoms: denies symptoms Allergies and Home Medications Allergies Coded Allergies: No Known Drug Allergies (Unverified , 10/21/18) Home Medications Metronidazole 70 Gm Gel.w.appl, 1 APPLIC VG BID Prescribed by: KEZIA HERNANDEZ on 07/28/19 1410 Patient Home Medication List Home Medication List Reviewed: Yes Review of Systems Review of Systems Constitutional: no symptoms reported, see HPI Genitourinary: see HPI, discharge (white to yellow in color); denies dysuria, denies hematuria, denies incontinence, denies urgency : No All Other Systemes Reviewed Negative Unless Noted: Yes Past Bhfskhx-Poslmt-Rehumz Hx Past Med/Social Hx: Reviewed Nursing Past Med/Soc Hx Patient Social History Alcohol Use: Denies Use Recreational Drug Use: No Smoking Status: Current Everyday Smoker Type Used: Cigarettes 2nd Hand Smoke Exposure: No Recent Foreign Travel: No Contact w/Someone Who Travel: No Recent Infectious Disease Expo: No Recent Hopitalizations: No Immunizations Up To Date Tetanus Booster (TDap): Less than 5yrs Seasonal Allergies Seasonal Allergies: No Past Medical History Surgeries: No Respiratory: No Cardiac: No Neurological: No Sexually Transmitted Disease: Yes HIV/AIDS: No Genitourinary: No Gastrointestinal: Yes Gastroesophageal Reflux Musculoskeletal: No Endocrine: No HEENT: No Cancer: No Psychosocial: Yes Anxiety, Depression Integumentary: No Blood Disorders: No Family Medical History Anxiety disorder 19 MOTHER FH: breast cancer 19 MOTHER Hypertension G8 BROTHER Physical Exam Vital Signs Vital Signs - First Documented 07/28/19 13:35 Temp 36.7 Pulse 103 Resp 16 B/P (MAP) 106/74 (85) Pulse Ox 100 O2 Delivery Room Air Capillary Refill : Less Than 3 Seconds Height, Weight, BMI Height: 5'2.00" Weight: 123lbs. 0oz. 55.680356xt; 21.00 BMI Method:Stated General Appearance: WD/WN, no apparent distress HEENT: PERRL/EOMI, normal ENT inspection, TMs normal, pharynx normal Neck: non-tender, full range of motion, supple, normal inspection Cardiovascular: normal peripheral pulses, regular rate, rhythm Respiratory: chest non-tender, lungs clear, normal breath sounds Gastrointestinal: normal bowel sounds, non tender, soft Back: normal inspection, no CVA tenderness; No CVA tenderness (R), No CVA tenderness (L) Extremities: normal range of motion, non-tender, normal inspection, no pedal edema Neurologic/Psychiatric: no motor/sensory deficits, alert, normal mood/affect, oriented x 3 Skin: normal color, warm/dry Progress/Results/Core Measures Suspected Sepsis Recent Fever Within 48 Hours: No Infection Criteria Present: Suspected New Infection New/Unexplained Altered Menta: No Sepsis Screen: No Definite Risk SIRS Temperature: Pulse: 103 Respiratory Rate: 16 Blood Pressure 106 /74 Mean: 85 Results/Orders Lab Results Laboratory Tests Test 07/28/19 13:40 Range/Units Urine Color YELLOW Urine Clarity CLEAR Urine pH 6.5 5-9 Urine Specific [place] 1.010 L 1.016-1.022 Urine Protein NEGATIVE NEGATIVE Urine Glucose (UA) NEGATIVE NEGATIVE Urine Ketones 2+ H NEGATIVE Urine Nitrite NEGATIVE NEGATIVE Urine Bilirubin NEGATIVE NEGATIVE Urine Urobilinogen NORMAL NORMAL MG/DL Urine Leukocyte Esterase 1+ H NEGATIVE Urine RBC (Auto) NEGATIVE NEGATIVE Urine RBC NONE /HPF Urine WBC 2-5 /HPF Urine Squamous Epithelial Cells NONE /HPF Urine Crystals NONE /LPF Urine Bacteria MODERATE H /HPF Urine Casts NONE /LPF Urine Mucus SMALL H /LPF Urine Culture Indicated NO My Orders Orders - KEZIA HERNANDEZ Ua Culture If Indicated (07/28/19 13:17) Urine Bedside (07/28/19 13:17) Vital Signs/I&O 07/28/19 07/28/19 13:35 14:55 Temp 36.7 36.7 Pulse 103 103 Resp 16 16 B/P (MAP) 106/74 (85) 106/74 (85) Pulse Ox 100 100 O2 Delivery Room Air Capillary Refill : Less Than 3 Seconds Blood Pressure Mean: 85 Departure Impression Primary Impression: Bacterial vaginitis Additional Impression: Vaginal jeffery Disposition: 01 HOME, SELF-CARE Condition: Improved Departure-Patient Inst. Decision time for Depature: 14:40 Referrals: MICAH SLAUGHTER MD (PCP/Family) Primary Care Physician Patient Instructions: Vaginal Yeast Infection (DC), Bacterial Vaginosis (DC) Add. Discharge Instructions: Drink 1/2 cup of cranberry juice twice daily. He one carton of activity yogurt daily. Use the MetroGel twice daily as directed. Follow-up with Dr. Slaguhter in 2-3 days if symptoms are not improving or worsen. Continue to drink increased water intake. Follow up in the emergency department for new, urgent health care needs. All discharge instructions reviewed with patient and/or family. Voiced understanding. Scripts Metronidazole (Metrogel-Vaginal) 70 Gm Gel.w.appl 1 APPLIC VG BID for 5 Days, #1 TUBE 0 Refills Prov: KEZIA HERNANDEZ 07/28/19 KEZIA HERNANDEZ Jul 28, 2019 14:10
[2019-07-28 14:14] LABS: BILIRUBIN,URINE NEGATIVE (NEGATIVE); CLARITY,URINE CLEAR; COLOR,URINE YELLOW; GLUCOSE, URINE (UA) NEGATIVE (NEGATIVE); KETONES,URINE 2+ (NEGATIVE); LEUKOCYTE ESTERASE ,URINE 1+ (NEGATIVE); NITRITE,URINE NEGATIVE (NEGATIVE); PH,URINE 6.5 (5-9); PROTEIN,URINE NEGATIVE (NEGATIVE)
[2019-07-28 14:22] LABS: BACTERIA,URINE MODERATE /HPF
[2019-07-28 14:55] VITALS: BP 106/74
== END 2019-07-28 14:55 | disposition home or self-care (01) ==
LOC: EDUNIT# 13:12 → ER 13:14
DX: N76.0 Acute vaginitis (principal); B96.89 Other specified bacterial agents as the cause of diseases classified elsewhere; B37.3 Candidiasis of vulva and vagina; F41.9 Anxiety disorder, unspecified; F32.9 Major depressive disorder, single episode, unspecified; K21.9 Gastro-esophageal reflux disease without esophagitis; F17.210 Nicotine dependence, cigarettes, uncomplicated; Z80.3 Family history of malignant neoplasm of breast; Z82.49 Family history of ischemic heart disease and other diseases of the circulatory system
CPT/HCPCS: 81000; 84703; 99282

== ENCOUNTER 2019-08-07 21:25 | Emergency (ER) | payer MEDICAID ==
[~2019-08-07] VITALS: Ht 157 cm; Wt 53.0 kg
[~2019-08-07 21:25] MED LIST changes: +FAMO40TA6; +METR70GE16 VG; +RANI150T11
[2019-08-07] MEDS ORDERED: HYDR-3584 (21:39)
[2019-08-07] MEDS ORDERED: METR70GE16 (21:39)
[2019-08-07] MEDS ORDERED: BUSP15TA60 (21:39)
[2019-08-07] MEDS ORDERED: METR-145 (21:39)
[2019-08-07] MEDS ORDERED: CLIN150C17 (21:46)
[2019-08-07] MEDS ORDERED: CLIN300C11 PO (21:56)
--- NOTE | 2019-08-07 21:56 | ED General ---
General Chief Complaint: Dizziness/Syncope Stated Complaint: DIZZINESS Nursing Triage Note: INTERMITTANT DIZZINESS SINCE 08/05/19 AFTER STARTING FLAGYL Nursing Sepsis Screen: No Definite Risk Source of Information: Patient Exam Limitations: No Limitations History of Present Illness Date Seen by Provider: Aug 07, 2019 Time Seen by Provider: 21:51 Initial Comments To ER with reports of intermittent dizziness that seems to recur after taking her metronidazole twice daily which she is doing for apparent bacterial vaginosis. She was prescribed this a few days ago for a whitish yellowish green vaginal discharge right before starting her period. She states that she was seen at [facility] and self swabbed that doesn't know the results of this, she was however given Diflucan and prescription for metronidazole. She is now on her menstrual period and is unable to evaluate the consistency and appearance of the other vaginal discharge Timing/Duration: 2-3 Days Severity: Moderate Associated Systoms: Denies Symptoms Allergies and Home Medications Allergies Coded Allergies: No Known Drug Allergies (Unverified , 10/21/18) Patient Home Medication List Home Medication List Reviewed: Yes Review of Systems Review of Systems Constitutional: see HPI EENTM: see HPI Respiratory: no symptoms reported Cardiovascular: no symptoms reported Genitourinary: see HPI Musculoskeletal: no symptoms reported Skin: no symptoms reported Psychiatric/Neurological: No Symptoms Reported Hematologic/Lymphatic: No Symptoms Reported Immunological/Allergic: no symptoms reported Past Qexuwvw-Lrazrw-Ohohdg Hx Patient Social History Alcohol Use: Denies Use Recreational Drug Use: No Smoking Status: Current Everyday Smoker Type Used: Cigarettes 2nd Hand Smoke Exposure: Yes Recent Foreign Travel: No Contact w/Someone Who Travel: No Recent Infectious Disease Expo: No Recent Hopitalizations: No Physical Abuse: No Sexual Abuse: No Mistreated: No Fear: No Immunizations Up To Date Tetanus Booster (TDap): Less than 5yrs Seasonal Allergies Seasonal Allergies: No Past Medical History Surgeries: No Respiratory: No Cardiac: No Neurological: No Sexually Transmitted Disease: Yes HIV/AIDS: No Genitourinary: No Gastrointestinal: Yes Gastroesophageal Reflux Musculoskeletal: No Endocrine: No HEENT: No Cancer: No Psychosocial: Yes Anxiety, Depression Integumentary: No Blood Disorders: No Family Medical History Anxiety disorder 19 MOTHER FH: breast cancer 19 MOTHER Hypertension G8 BROTHER Physical Exam Vital Signs Vital Signs - First Documented 08/07/19 21:31 Temp 36.3 Pulse 93 Resp 18 B/P (MAP) 129/92 (104) Pulse Ox 97 O2 Delivery Room Air Capillary Refill : Less Than 3 Seconds Height, Weight, BMI Height: 5'2.00" Weight: 123lbs. 0oz. 55.304029io; 21.00 BMI Method:Stated General Appearance: No Apparent Distress, WD/WN Eyes: Bilateral Eye Normal Inspection, Bilateral Eye PERRL, Bilateral Eye EOMI Neck: Full Range of Motion, Normal Inspection Respiratory: No Accessory Muscle Use, No Respiratory Distress Cardiovascular: Regular Rate, Rhythm, Normal Peripheral Pulses Gastrointestinal: Non Tender, Soft Extremity: Normal Capillary Refill, Normal Inspection Neurologic/Psychiatric: Alert, Oriented x3 Skin: Normal Color, Warm/Dry Progress/Results/Core Measures Suspected Sepsis Recent Fever Within 48 Hours: No Infection Criteria Present: None New/Unexplained Altered Menta: No Sepsis Screen: No Definite Risk SIRS Temperature: Pulse: 93 Respiratory Rate: 18 Blood Pressure 129 /92 Mean: 104 Results/Orders My Orders Orders - CYRIL ROSSI APRN Clindamycin Capsule (Cleocin Capsule) (08/07/19 22:00) Vital Signs/I&O 08/07/19 21:31 Temp 36.3 Pulse 93 Resp 18 B/P (MAP) 129/92 (104) Pulse Ox 97 O2 Delivery Room Air Capillary Refill : Less Than 3 Seconds Blood Pressure Mean: 104 POS Departure Impression Primary Impression: Medication side effect Disposition: 01 HOME, SELF-CARE Condition: Stable Departure-Patient Inst. Decision time for Depature: 21:54 Referrals: MICAH RIOJAS MD (PCP/Family) Primary Care Physician Patient Instructions: Adverse Drug Reactions, Adult (DC) Add. Discharge Instructions: 1. You may stop the metronidazole. Replace with clindamycin. Follow-up with [facility], call tomorrow for results and to tell them you were in the ER for dizziness possibly related to metronidazole, changed to clindamycin and ask if clindamycin would cover whenever bacteria they cultured from her swabs All discharge instructions reviewed with patient and/or family. Voiced understanding. Scripts Clindamycin HCl (Clindamycin HCl) 300 Mg Capsule 300 MG PO BID, #10 CAP Prov: CYRIL ROSSI APRN 08/07/19 CYRIL ROSSI APRN Aug 07, 2019 21:56 POS
[2019-08-07 21:58] VITALS: BP 129/92
[2019-08-07] MEDS ORDERED: CLINDAMYCIN 150 MG (CLEOCIN) CAP PO ONE (22:00)
== END 2019-08-07 21:59 | disposition home or self-care (01) ==
LOC: EDUNIT# 21:25 → ER 21:27
DX: R42 Dizziness and giddiness (principal); T37.3X5A Adverse effect of other antiprotozoal drugs, initial encounter; F17.210 Nicotine dependence, cigarettes, uncomplicated; K21.9 Gastro-esophageal reflux disease without esophagitis; F41.9 Anxiety disorder, unspecified; F32.9 Major depressive disorder, single episode, unspecified; Z80.3 Family history of malignant neoplasm of breast; Z82.49 Family history of ischemic heart disease and other diseases of the circulatory system
CPT/HCPCS: 99283

== ENCOUNTER → 2019-11-20 | Outpatient (CLI) | payer MEDICAID ==
[~2019-11-20] MED LIST changes: +BUSP15TA60; +CLIN150C17; +CLIN300C11 PO; +HYDR-3584; +METR-145; +METR70GE16
--- NOTE | 2019-11-20 11:40 | Diagnostic Imaging Report ---
INDICATION: Breast pain. TECHNIQUE: Multiple Real-time grayscale images were obtained of the subareolar region of both breasts. FINDINGS: There is no discrete solid or cystic mass in the breast. Both breasts appear dense. IMPRESSION: Negative targeted ultrasound of both breasts. ACR BI-RADS Category 1: Negative. Dictated by: Dictated on workstation # [id number]
== END ==
LOC: RAD 10:25
PROVIDERS: ATTEND Nurse Practitioner Family
DX: N64.4 Mastodynia (principal)
CPT/HCPCS: 76642

== ENCOUNTER → 2020-05-11 | Outpatient (CLI) | payer MEDICAID ==
--- NOTE | 2020-05-11 13:11 | Diagnostic Imaging Report ---
INDICATION: Lumps in the retroareolar regions bilaterally. COMPARISON: No prior mammograms are available for comparison. TECHNIQUE: 2D and 3D bilateral diagnostic mammography was performed with CAD. FINDINGS: Both breasts are heterogeneously dense, limiting the sensitivity of mammography. No discrete mass or malignant appearing microcalcifications are seen. The axillae are unremarkable. IMPRESSION: No mammographic features suspicious for malignancy are identified. Sonographic interrogation of the retroareolar regions bilaterally is recommended to evaluate the patient's palpable abnormalities. ACR BI-RADS Category 0: Incomplete. (Needs additional imaging evaluation). Result letter will be mailed to the patient. Note: At least 10% of breast cancer is not imaged by mammography. Dictated by: Dictated on workstation # [id number]
--- NOTE | 2020-05-11 13:42 | Diagnostic Imaging Report ---
INDICATION: Lumps in the retroareolar regions bilaterally. Study is performed for further evaluation. Correlation is made with diagnostic mammogram earlier the same day. Sonographic interrogation of the retroareolar regions of both right and left breast was performed. No sonographic abnormality is identified. No solid or cystic mass is detected. IMPRESSION: BI-RADS Category 1 No sonographic abnormality is detected. Continued close clinical and self breast exam is recommended to confirm stability of the areas of palpable abnormality. ACR BI-RADS Category 1: Negative. Result letter will be mailed to the patient. Note: At least 10% of breast cancer is not imaged by mammography. Dictated by: Dictated on workstation # [id number]
== END ==
LOC: RAD 10:15
PROVIDERS: ATTEND Family Medicine
DX: Z12.31 Encounter for screening mammogram for malignant neoplasm of breast (principal)
CPT/HCPCS: 76642; 77066; G0279; 77062

== ENCOUNTER → 2021-12-14 | Outpatient (CLI) | payer MEDICAID ==
[~2021-12-14] MED LIST changes: +CLIN-144 PO; -CLIN150C17; -CLIN150C17 PO; +CLIN150C20; +CLIN150C20 PO; -CLIN300C11 PO
--- NOTE | 2021-12-14 18:51 | Diagnostic Imaging Report ---
INDICATION: Scoliosis. EXAMINATION: Scoliosis of cerebral atrophy and fatty FINDINGS: Measurement of the curvature of the thoracolumbar spine is noted as the entire spine is not included on a single image. There are six lumbar-type vertebral bodies with partial sacralization of what will be labeled L6. There is a mild dextroconvex scoliosis of the thoracic spine measured from the inferior endplate at T12 to the superior endplate of T6. A 16-degree levoconvex scoliotic deformity is noted in the upper lumbar spine measured from the superior endplate of L1 to the inferior endplate at L3. There are no vertebral body anomalies appreciated. IMPRESSION: 1. 14-degree dextroconvex scoliosis of the thoracic spine with a levoconvex scoliosis of 16 degrees in the upper lumbar region. Dictated by: Dictated on workstation # [id number]
== END ==
LOC: RAD 14:49
PROVIDERS: ATTEND Nurse Practitioner
DX: M41.85 Other forms of scoliosis, thoracolumbar region (principal)
CPT/HCPCS: 72081